=== PATIENT | male | born 1960 | race African-American/Black ===

== ENCOUNTER 2019-05-29 10:25 | Inpatient (IN) ==
--- NOTE | 2019-05-22 15:45 | PAT Medication Instructions ---
Medication Instructions Date of Service May 22, 2019 Home Medications tramadol 50 mg PO Q6H PRN Take morning of surgery With a small sip of water, OTHERWISE NOTHING TO EAT OR DRINK AFTER MIDNIGHT: tramadol 50 mg PO Q6H PRN (okay to take up to 4 hours prior to surgery if needed) Take evening before surgery tramadol 50 mg PO Q6H PRN (if needed) Other Notes If you have any questions please call us at [phone] or [phone] or [phone] or [phone]
--- NOTE | 2019-05-23 11:59 | Anesthesiology Consultation ---
Date of Service May 23, 2019 Assessment & Plan (1) Encounter for pre-operative examination: - Awaiting most recent cardiology office visit (Dr. Kumar). - Awaiting preop UA (being done at [facility]). Chart Review Chart Review: Acceptable Risk for Surgery and Patient seen in Pre Admission Testing Consults Requested none Teaching & Discussion Pre-Anesthesia Teaching/Discussion Notes: Instructed NPO after midnight before surgery,except medications with 15 cc of water. Medication instructions provided according to the PAT guidelines. History Surgery Operation Date: 05/29/19 13:05 Proposed Procedures p L4-L5, L5-S1 Revision Decompression and Fusion with Spinal Cord Monitoring - Harvey Chong, Height/Weight Height: 5 ft 10 in Weight: 120.2 kg Allergies Allergy/AdvReac Type Severity Reaction Status Date / Time ciprofloxacin [From Cipro] Allergy Unknown Hives Verified 05/20/19 16:01 morphine AdvReac Unknown GI UPSET Verified 05/22/19 15:43 Medications Home Medications Medication Instructions Recorded Confirmed Last Taken tramadol 50 mg PO Q6H PRN 05/20/19 05/20/19 Unknown Past Medical History Medical History Atrial fibrillation paroxysmal; previously on Eliquis but per patient, decision with pilot safety inspector to discontinue 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 Chronic back pain B/L LE radiculopathy HTN (hypertension) no meds Hx of renal cell cancer s/p right partial nephrectomy (no chemo or radiation) Obesity Exercise / Class Metabolic Activity III < 4 Walking/Shop/Light housework (uses cane PRN) Past Surgical History Surgical History History of arthroscopic knee surgery History of back surgery X3 History of cardiac cath 2+ years ago: no stents History of excision of mass CHEST X2 History of right hip replacement Hx of colonoscopy Hx of eye surgery RIGHT Hx of partial nephrectomy RIGHT Past Anesthesia History No Hx of Anesthesia Complications and No Family Hx of Anesthesia Complications Social History Smoking Status: Current every day smoker tobacco type: cigarettes Smoking cigarettes per day: 10 cigarettes x 30 years Do You Dip or Chew Tobacco: No Hx Alcohol Use: Yes alcohol intake frequency: holidays/special occasions only Hx Substance Use: No substance use type: does not use Review of Systems Patient denies chest pain, shortness of breath, cough, wheezing, palpitations. Physical Exam Vital Signs VITALS BP 165/82 (Patient advised to followup with PCP regarding elevated BP) P 74 TEMP 98.7 SP02 96%RA RESP 16 PHYSICAL Full neck and c-spine range of motion. Full TMJ range of motion. TMD 4 finger breaths Mallampati Score 3 Dentition: missing molars Lungs: clear throughout to auscultation Cardiac: regular rate and rhythm, no murmurs noted Spine: normal Carotid arteries: negative bruit Extremities: no edema Testing Laboratory Results 05/23/19 12:16 05/23/19 12:16 PT 10.4 Seconds (9.0-12.0) 05/23/19 12:16 INR 1.0 (0.9-1.1) 05/23/19 12:16 APTT 27.5 Seconds (21.0-31.0) 05/23/19 12:16 Blood Type B Positive 05/23/19 12:16 Antibody Screen NEGATIVE 05/23/19 12:16 Electrocardiogram Date: 02/16/19 SR at 71bpm. Borderline inferior leads TWA. Chest X-Ray Date: 03/25/19 Findings: + NAD Echocardiogram Date: 10/22/17 LVEF 60-65%. Borderline RVD. Mild LAE. Mild LEXI. Consistent with LVH. Stress Test Date: 02/19/18 Type: nuclear LVEF 48%. "Normal" LV Wall motion. Consistent with diaphragmatic attenuation artifact. 50% MPHR. No suggestion of ischemia or infarct.
[2019-05-23 14:15] LABS: BUN Creatinine Ratio 14.1 (10-20); Calcium 9.5 mg/dl (8.5-10.1); Creatinine Clr Calc Pharmacy 74.6 ml/min; Est GFR (African American) 63.1; Est GFR (Non-African American) 54.4; Potassium 4.3 mmol/L (3.5-5.1)
[2019-05-23 15:38] LABS: Basophils # (auto) 0.02 K/uL (0-0.2); Basophils % (auto) 0.3 %; Eosinophils # (auto) 0.12 K/uL (0-0.5); Eosinophils % (auto) 1.8 %; Hemoglobin 15.2 g/dL (14.0-18.0); Immature Granulocytes # (auto) 0.02 K/uL (0.00-0.02); Immature Granulocytes % (auto) 0.3 %; Lymphocytes # (auto) 1.77 K/uL (1.2-3.4); Lymphocytes % (auto) 26.3 %; Mean Corpuscular Hemoglobin 28.1 pg (25-34); Mean Corpuscular Hgb Conc 33.8 g/dL (32-36); Mean Corpuscular Volume 83.2 fL (80-100); Mean Platelet Volume 11.1 fL (7.4-10.4); Monocytes # (auto) 0.49 K/uL (0.11-0.59); Monocytes % (auto) 7.3 %; Neutrophils # (auto) 4.32 K/uL (1.4-6.5); Platelet Count 248 K/uL (130-400); RDW Coefficient of Variation 15.1 % (11.5-14.5); RDW Standard Deviation 45.6 fL (36.4-46.3); Red Blood Count 5.41 M/uL (4.7-6.1); White Blood Count 6.74 K/uL (4.8-10.8)
[2019-05-23 15:50] LABS: Partial Thromboplastin Time 27.5 Seconds (21.0-31.0); Prothrombin Time 10.4 Seconds (9.0-12.0)
[~2019-05-29 10:25] MED LIST: ACETAMINOPHEN 500 MG TAB PO SCH; CEFAZOLIN 3000MG 72.5 ML IV SCH; CeleBREX 200 MG CAP PO SCH; GABAPENTIN 600 MG DOSE PO SCH; LR 15ML/HR IV SCH
[2019-05-29] MEDS ORDERED: MIDAZOLAM HCL 1 MG/ML 2ML VIAL ONE (12:46)
[2019-05-29] MEDS ORDERED: fentaNYL citrate 100 MCG/2 ML VIAL ONE ×5 (12:46→16:24)
--- NOTE | 2019-05-29 13:08 | History & Physical Bridge Note ---
Date of Service May 29, 2019 History & Physical Bridge Note I have examined the patient, reviewed the History & Physical and in the interval since the performance of the History & Physical I have noted the following changes of clinical significance: no changes noted
--- NOTE | 2019-05-29 13:10 | History & Physical Report ---
Date of Service May 29, 2019 Assessment & Plan (1) Spinal stenosis, lumbar region with neurogenic claudication: Revision decompression fusion L4-5 L5-S1. Present on Admission?: Yes History of Present Illness Chief Complaint: Back and bilateral leg pain Primary Care Provider: NO PCP This is a 58-year-old male well-known to me that presents with chronic persistent back pain after failing extensive course of nonoperative care is here for surgical intervention. 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 Chronic back pain B/L LE radiculopathy Hx of renal cell cancer s/p right partial nephrectomy (no chemo or radiation) HTN (hypertension) no meds Obesity Surgical History History of arthroscopic knee surgery History of back surgery X3 History of cardiac cath 2+ years ago: no stents History of excision of mass CHEST X2 History of right hip replacement Hx of colonoscopy Hx of eye surgery RIGHT Hx of partial nephrectomy RIGHT Social History Preferred Language: French Communication Ability: Effective Beliefs That Will Affect Care: None Current Living Situation: Significant Other Feels Safe at Home: Yes Smoking Status: Current every day smoker Tobacco Type: cigarettes ; Cigarettes Per Day: 10 cigarettes x 30 years ; Do You Dip or Chew Tobacco: No ; Second Hand Exposure: Yes (DAILY) ; Hx Alcohol Use: Yes Hx Substance Use: No Physical Exam Physical Exam: Patient is alert and oriented neurologically intact. Results & Data Vital Signs (Past 12 Hours) Vital Signs Temp Pulse Resp BP Pulse Ox 05/29/19 11:25 36.8 C 66 20 146/86 H 96
[2019-05-29] MEDS ORDERED: BACITRACIN INJ 50,000 UNIT VIAL ONE (13:19)
[2019-05-29] MEDS ORDERED: BUPIVACAINE/EPINEPHRINE 0.5% MPF 1:200,000 30 ML VIAL ONE (13:19)
[2019-05-29] MEDS ORDERED: HYDROmorphone INJ 2 MG/ML SYR/VIAL ONE (13:20)
[2019-05-29] MEDS ORDERED: ATROPINE SULFATE 0.1 MG/ML 10ML SYR IV PRN (13:23)
[2019-05-29] MEDS ORDERED: ePHEDrine sulfate 50 MG/ML AMP IV PRN (13:23)
[2019-05-29] MEDS ORDERED: PROPOFOL IV EMULSION 10 MG/ML 20 ML VIAL IV ONE ×2 (14:03→16:12)
[2019-05-29] MEDS ORDERED: NEOSTIGMINE METHYLSULFATE 1 MG/ML 10ML VIAL ONE (14:03)
[2019-05-29] MEDS ORDERED: ROCURONIUM BROMIDE 10 MG/ML 5 ML VIAL ONE (14:03)
[2019-05-29] MEDS ORDERED: PHENYLEPHRINE 100MCG/ML 5ML SYR ONE (14:03)
[2019-05-29] MEDS ORDERED: LIDOCAINE HCL 2% 2 ML VIAL/AMP(20MG/ML) INFIL ONE (14:03)
[2019-05-29] MEDS ORDERED: DEXAMETHASONE SOD INJ 4 MG/ML VIAL ONE (14:03)
[2019-05-29] MEDS ORDERED: ONDANSETRON INJ 2 MG/ML 2 ML VIAL ONE (14:03)
[2019-05-29] MEDS ORDERED: GLYCOPYRROLATE 0.2 MG/ML VIAL ONE (14:03)
[2019-05-29] MEDS ORDERED: FLOSEAL HEMOSTATIC MATRIX 10ML TOP ONE (14:05)
[2019-05-29] MEDS ORDERED: GENTAMICIN SULFATE 40 MG/ML 2 ML VIAL ONE (14:08)
[2019-05-29] MEDS ORDERED: VANCOMYCIN HCL 1000MG/20ML VIAL ONE (14:08)
[2019-05-29] MEDS ORDERED: LARYING-O-JET KIT (LTA) ONE (14:10)
[2019-05-29] MEDS ORDERED: PHENYLEPHRINE HCL 10 MG/ML VIAL ONE (14:14)
--- NOTE | 2019-05-29 17:01 | Fluoroscopy Report ---
FL lumbar spine 2-3V CLINICAL HISTORY: L4-L5, L5-S1 REVISION, DECOMPRESSION AND FUSION COMPARISON STUDY: None FLUOROSCOPY TIME: 2 minutes NUMBER OF FLUOROSCOPIC IMAGES: 2 FINDINGS: Findings of a posterior laminectomy and fusion at L4, L5, and S1. Disc spacers present at L 5-S1 slightly left lateral midline. IMPRESSION: Findings consistent with posterior laminectomy and fusion from L4 through S1 with disc sp acer placement at L5-S1 The above report was generated using voice recognition software. It may contain grammatical, syntax or spelling errors. Electronically signed by: Lenin Gerardo M.D. 05/29/2019 5:00 PM
--- NOTE | 2019-05-29 17:06 | Operative Report ---
Post Operative Report Pre & Post Diagnosis Operation Date: 05/29/19 12:45 Pre-Op Diagnosis: Spinal stenosis, lumbar region with neurogenic claudication L4-S1 Nonunion L5-S1 Post-Op Diagnosis: Same Procedure Operation Date: 05/29/19 12:45 Actual Procedures #1 revision decompression L4-5 L5-S1 with medial facetectomies foraminotomies. #2 posterior spinal fusion L4-5 L5-S1. #3 placement posterior instrumentation L4-5 L5-S1. #4 revision interbody fusion L5-S1. #5 placement of peek cage 9 x 26 mm at L5-S1. #6 placement of local autograft in the posterior lateral gutters. #7 placement infuse collagen sponge, mass graft in the posterior lateral gutters and ostial amp and interbody space. #8 expiration of fusion. Surgeon Harvey Chong, DO System Development Engineer None Estimated Blood Loss 350 Findings See Below Patient is 5 foot 10 inches tall weighing over 118 kg with a BMI in excess of 37. Patient's body habitus added significant technical difficulty particularly in the light of her revision procedure and at least 50% increase in operative time. Specimens None Indications This is a 58-year-old male who presents with chronic persistent back and leg pain after failing extensive course of nonoperative care like to go above- mentioned procedure. Description of Procedure Patient was met with identified and informed consent obtained. Patient was then taken to the operative suite underwent intubation placed in a prone position on the Vishal table on top of the Vimal frame. All bony prominences well-padded eyes inspected to ensure no external pressure placed upon the peer at this point the lumbar spine was prepped and draped in normal sterile fashion. Sharp dissection with the assistance of Bovie cautery was then performed down to and exposing the remaining lamina and transverse processes of L4-L5 and sacral ala bilaterally. I then explored the fusion mass noting motion definitely appreciable at the L5-S1 level. Then performed a revision decompression medial facetectomies at L4-5 L5-S1 on the left. Pedicle screws were placed in L4-L5 and S1 levels bilaterally with assistance of fluoroscopy and by way of a transforaminal approach on the left revision interbody fusion was performed. Remove the remaining disc material and placed a 9 x 26 mill meter peek cage filled with ostium bone graft and interbody space. The rods were then locked in final position bilaterally. The transverse processes of L for L5 and the sacral ala were then burred to subcortical being bone. Infuse collagen sponge master graft local autograft placed in the posterior lateral gutters. Approximately 10 cc of stimulant beads impregnated with vancomycin tobramycin placed within the wound. 15 round AMENA drain inserted. Incision was then closed with 1 Vicryl in the fascia 2-0 Vicryl subcutaneously and 4 Monocryl for final skin closure. Steri-Strip sterile dressings placed. Patient will continue to PACU stable condition. Please note spinal cord monitoring was utilized that the procedure no changes noted. I attest to the content of the Intraoperative Record and any orders documented therein. Any exceptions are noted below.
[2019-05-29] MEDS: HYDROmorphone INJ 1 MG/ML SYRINGE IV PRN ×7 (17:22→17:52)
[2019-05-29] MEDS ORDERED: MEPERIDINE HCL 50 MG/ML CARP ONE (17:56)
[2019-05-29] MEDS ORDERED: MEPERIDINE HCL 50 MG/ML CARP IV ONE (17:56)
[2019-05-29] MEDS ORDERED: LORazepam 2 MG/4 ML VIAL ONE (17:57)
--- NOTE | 2019-05-29 18:27 | Anesthesiology Progress Note ---
Date of Service May 29, 2019 Anesthesia Post Procedure Vital Signs Vital Signs: Temp Pulse Pulse Resp BP Pulse Ox 05/29/19 18:20 81 12 149/70 H 97 05/29/19 18:10 82 13 140/74 98 05/29/19 18:00 84 12 133/61 100 05/29/19 17:50 82 17 139/65 100 05/29/19 17:40 84 24 145/66 H 100 05/29/19 17:30 81 21 137/78 99 05/29/19 17:20 81 24 128/66 99 05/29/19 17:10 36.4 C L 96 H 12 137/86 100 05/29/19 11:25 36.8 C 66 20 146/86 H 96 Pain Intensity Lower Back: Pain Intensity: 3 Notes Mental Status: alert / awake / arousable Patient Amnestic to Procedure: Yes Nausea / Vomiting: adequately controlled Pain: adequately controlled Airway Patency, RR, SpO2: stable & adequate BP & HR: stable & adequate Hydration State: stable & adequate Anesthetic Complications: no major complications apparent and Pt Satisfied with anesthetic care
[2019-05-29] MEDS ORDERED: DO NOT ADMINISTER PNEUMOCOCCAL VACCINE PRN (18:47)
[2019-05-29] MEDS ORDERED: METOCLOPRAMIDE HCL INJ 5 MG/ML 2 ML VIAL IV PRN (18:47)
[2019-05-29] MEDS ORDERED: LORazepam 0.5 MG TAB PO PRN (18:47)
[2019-05-29] MEDS ORDERED: ONDANSETRON 4 MG TAB PO PRN (18:47)
[2019-05-29] MEDS ORDERED: DO NOT ADMINISTER FLU VACCINE PRN (18:47)
[2019-05-29] MEDS ORDERED: ACETAMINOPHEN 1,000 MG/100 ML VIAL IV PRN (18:47)
[2019-05-29] MEDS ORDERED: LORazepam 0.5 MG/1 ML VIAL IV PRN (18:47)
[2019-05-29] MEDS ORDERED: BISACODYL 10 MG SUPP PR PRN (18:47)
[2019-05-29] MEDS ORDERED: NALOXONE HCL 0.4 MG/1 ML VIAL/CARP IV PRN (18:47)
[2019-05-29] MEDS ORDERED: MAGNESIUM HYDROXIDE SUSP 30 ML UDC PO PRN (18:47)
[2019-05-29] MEDS ORDERED: HYDROmorphone INJ 0.5 MG/0.5 ML SYR IV PRN (18:47)
[2019-05-29] MEDS ORDERED: SOD PHOSPHATE/SOD BIPHOSPHATE ENEMA 132 ML BTL PR PRN (18:47)
[2019-05-29] MEDS ORDERED: PROMETHAZINE HCL 12.5 MG in SODIUM CHLORIDE 0.9% 50 ML IV PRN (18:47)
[2019-05-29] MEDS ORDERED: ACETAMINOPHEN 500 MG TAB PO PRN (18:47)
--- NOTE | 2019-05-29 19:31 | Hospitalist Consultation ---
Date of Consultation May 29, 2019 Assessment & Plan (1) Spinal stenosis, lumbar region with neurogenic claudication: - POD# 0 revision of decompression fusion L4-L5, L5-S1 by Dr. Chong - activity and wound care orders as per ortho - pain control with bowel regimen - PT/OT - monitor H/H for acute blood loss anemia and transfuse blood products PRN - EBL 350 cc (2) HTN (hypertension): -BP currently controlled -Patient declines to take antihypertensives at home (3) Paroxysmal A-fib: -Currently in NSR -Patient declines medications and anticoagulation (4) CAD (coronary artery disease): -Nonobstructive -Appears stable, no reports of chest pain -Patient declines medications (5) DVT prophylaxis: -Teds/SCDs as per spine orthopedics Thank you for this consultation. We will follow the patient with you during their hospital stay. You can reach a member of the [facility] Hospitalist Team 03/04 via pager @ [phone]. Supervising Physician Co-Signing Physician Notes Patient is a 58-year-old male with history of paroxysmal A. fib, right eye blindness secondary to trauma, renal cell carcinoma S/P partial right nephrectomy, hypertension, obesity and other problems was seen and evaluated postop after having revision of lumbar decompression surgery by Dr. Chong. Patient complains of bilateral lower extremity pain associated with some numbness and tingling postop. Denies any chest pain, shortness of breath, dizziness, nausea, abdominal pain. Physical Exam: Vitals signs as noted above General Appearance:Obese, no apparent distress Head: normocephalic, Atraumatic Eyes: normal inspection, EOMI Neck: supple, Trachea midline Respiratory/Chest: Normal breath sounds, CTA Cardiovascular: S1, S2, No murmur Abdomen/GI:Soft, Non tender, Bowel sounds present Back: Surgical settings dressing, +drain Extremities/Musculoskelatal:normal inspection, no edema Neurologic/Psych:AAOX3, grossly no focal neurological deficits Skin: normal color, warm Postoperative state S/P revision of lumbar decompression fusion surgery POD#0 Wound care, activity, DVT prophylaxis, pain control as per primary team Monitor for postop anemia Bowel regimen to prevent constipation ? CKD Unknown baseline creatinine Monitor renal function May need to discontinue IV Toradol if renal function worsens Continue IV fluids I personally reviewed the record. Patient is interviewed and examined at bedside. Patient's care is coordinated with Zuleika Murillo CEMENT TILE MAKER. Please refer to the documentation above for details of patient's presentation and for discussion of other issues. will follow the patient starting tomorrow. 05/30/19 History of Present Illness Reason for Consultation: Postop medical management Requesting Physician: Dr. Chong Attending Physician: Dr. Gale History of Present Illness 58-year-old male who is status post revision of decompression fusion L4-L5, L5- S1. Postoperatively, the patient is doing well. He is lethargic however arouses easily to verbal stimuli. History is limited. Is complaining of back and left leg pain and numbness and tingling to lower extremities. This was present before surgery. Patient denies chest pain shortness of breath. No lightheadedness or dizziness. Denies abdominal pain and nausea. Perdomo is in place draining clear yellow urine. Allergies Allergy/AdvReac Type Severity Reaction Status Date / Time ciprofloxacin [From Cipro] Allergy Unknown Hives Verified 05/29/19 11:01 morphine AdvReac Unknown GI UPSET Verified 05/29/19 11:01 Home Medications Home Medications Medication Instructions Recorded Confirmed Type tramadol 50 mg PO Q6H PRN 05/20/19 05/29/19 History Patient History Medical History CAD (coronary artery disease) (Chronic) Paroxysmal A-fib (Chronic) Chronic back pain (Chronic) B/L LE radiculopathy 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 Hx of renal cell cancer (Chronic) s/p right partial nephrectomy (no chemo or radiation) Obesity (Chronic) HTN (hypertension) (Chronic) no meds Surgical History History of cardiac cath (Chronic) non obstructive CAD Hx of partial nephrectomy (Chronic) RIGHT History of right hip replacement (Chronic) History of arthroscopic knee surgery (Chronic) History of back surgery (Chronic) X3 Hx of eye surgery (Chronic) RIGHT Family History Brother Kidney disease Social History Preferred Language: Czech Communication Ability: Effective Beliefs That Will Affect Care: None Current Living Situation: Significant Other Feels Safe at Home: Yes Smoking Status: Current every day smoker Tobacco Type: cigarettes ; Cigarettes Per Day: 10 cigarettes x 30 years ; Do You Dip or Chew Tobacco: No ; Second Hand Exposure: Yes (DAILY) ; Hx Alcohol Use: Yes Alcohol Intake Frequency: Rarely Hx Substance Use: No Review of Systems Review of Systems: ROS per HPI, all other systems reviewed and negative Physical Exam Physical Exam: Please refer to Dr. Gale's addendum for physical exam. Results & Data Vital Signs (Past 12 Hours) Vital Signs Temp Pulse Pulse Resp BP Pulse Ox 05/29/19 19:15 37 C 81 142/75 H 99 05/29/19 18:45 36.5 C 79 16 152/79 H 99 05/29/19 18:30 36.3 C L 84 15 133/64 96 05/29/19 18:20 81 12 149/70 H 97 05/29/19 18:10 82 13 140/74 98 05/29/19 18:00 84 12 133/61 100 05/29/19 17:50 82 17 139/65 100 05/29/19 17:40 84 24 145/66 H 100 05/29/19 17:30 81 21 137/78 99 05/29/19 17:20 81 24 128/66 99 05/29/19 17:10 36.4 C L 96 H 12 137/86 100 05/29/19 11:25 36.8 C 66 20 146/86 H 96
[2019-05-29] MEDS: CEFAZOLIN 2000MG 2,000 MG/15 ML SYR IV SCH (19:40)
[2019-05-29] MEDS: LACTATED RINGER'S 1,000 ML IV SCH (19:40)
[2019-05-29] MEDS: KETOROLAC 30 MG/ML VIAL IV SCH (19:46)
[2019-05-29] MEDS: ONDANSETRON INJ 2 MG/ML 2 ML VIAL IV PRN (22:09)
[2019-05-29] MEDS: DOCUSATE SODIUM/SENNA 50/8.6MG TAB PO SCH (22:11)
[2019-05-29] MEDS: OXYCODONE HCL IR 5 MG TAB (IMMEDIATE RELEASE) PO PRN (23:44)
[2019-05-30] MEDS: LACTATED RINGER'S 1,000 ML IV SCH (02:59)
[2019-05-30] MEDS: KETOROLAC 30 MG/ML VIAL IV SCH ×3 (03:00→13:29)
[2019-05-30] MEDS: CEFAZOLIN 2000MG 2,000 MG/15 ML SYR IV SCH (03:17)
[2019-05-30] MEDS: OXYCODONE HCL IR 5 MG TAB (IMMEDIATE RELEASE) PO PRN ×4 (04:26→19:01)
[2019-05-30] MEDS: POLYETHYLENE (MIRALAX) 17 GM PACK PO SCH ×3 (04:47→19:01)
[2019-05-30] MEDS: TRAMADOL HCL 50 MG TABLET PO PRN ×2 (05:47→22:43)
[2019-05-30 06:22] LABS: Eosinophils # (auto) 0.01 K/uL (0-0.5); Eosinophils % (auto) 0.1 %; Immature Granulocytes # (auto) 0.07 K/uL (0.00-0.02); Immature Granulocytes % (auto) 0.6 %; Lymphocytes # (auto) 1.18 K/uL (1.2-3.4); Lymphocytes % (auto) 9.9 %; Mean Corpuscular Hemoglobin 27.4 pg (25-34); Mean Corpuscular Hgb Conc 33.3 g/dL (32-36); Mean Corpuscular Volume 82.3 fL (80-100); Mean Platelet Volume 9.6 fL (7.4-10.4); Monocytes # (auto) 0.93 K/uL (0.11-0.59); Monocytes % (auto) 7.8 %; Neutrophils # (auto) 9.78 K/uL (1.4-6.5); Neutrophils % (auto) 81.6 %; Platelet Count 221 K/uL (130-400); RDW Coefficient of Variation 14.6 % (11.5-14.5); Red Blood Count 4.74 M/uL (4.7-6.1); White Blood Count 11.97 K/uL (4.8-10.8)
[2019-05-30 06:54] LABS: BUN Creatinine Ratio 14.1 (10-20); Creatinine Clr Calc Pharmacy 74.7 ml/min; Est GFR (African American) 63.6; Est GFR (Non-African American) 54.9; Potassium 4.2 mmol/L (3.5-5.1)
--- NOTE | 2019-05-30 09:22 | Orthopedic Progress Note ---
Date of Service May 30, 2019 Assessment & Plan (1) Spinal stenosis, lumbar region with neurogenic claudication: At this time we will initiate physical therapy. I will begin some additional medication for neural irritation. This is not surprising in light of the revision component of this procedure. This was explained to the patient. Present on Admission?: Yes Subjective Patient has worsening left leg symptoms. His back pain is controlled. Physical Exam Physical Exam: On exam he is able to sit up in bed. Is good strength testing bilateral lower extremities. Results & Data Vital Signs (Past 12 Hours) Vital Signs Temp Pulse Pulse Resp BP Pulse Ox 05/30/19 07:49 36.7 C 74 18 183/95 H 95 05/30/19 02:58 36.7 C 71 18 175/82 H 97 05/29/19 23:28 36.4 C L 68 18 177/67 H 99 05/29/19 21:43 36.7 C 75 16 167/79 H 100
--- NOTE | 2019-05-30 09:51 | Anesthesiology Progress Note ---
Date of Service May 30, 2019 Anesthesia Post Procedure Vital Signs Vital Signs: Temp Pulse Pulse Resp BP Pulse Ox 05/30/19 07:49 36.7 C 74 18 183/95 H 95 05/30/19 02:58 36.7 C 71 18 175/82 H 97 05/29/19 23:28 36.4 C L 68 18 177/67 H 99 05/29/19 21:43 36.7 C 75 16 167/79 H 100 05/29/19 20:44 36.4 C L 74 16 165/90 H 100 05/29/19 19:45 36.5 C 71 16 165/94 H 100 05/29/19 19:15 37 C 81 142/75 H 99 05/29/19 18:45 36.5 C 79 16 152/79 H 99 05/29/19 18:30 36.3 C L 84 15 133/64 96 05/29/19 18:20 81 12 149/70 H 97 05/29/19 18:10 82 13 140/74 98 05/29/19 18:00 84 12 133/61 100 05/29/19 17:50 82 17 139/65 100 05/29/19 17:40 84 24 145/66 H 100 05/29/19 17:30 81 21 137/78 99 05/29/19 17:20 81 24 128/66 99 05/29/19 17:10 36.4 C L 96 H 12 137/86 100 05/29/19 11:25 36.8 C 66 20 146/86 H 96 Notes Mental Status: alert / awake / arousable and participated in evaluation Nausea / Vomiting: adequately controlled Pain: adequately controlled Airway Patency, RR, SpO2: stable & adequate BP & HR: stable & adequate Hydration State: stable & adequate
--- NOTE | 2019-05-30 10:47 | Hospitalist Progress Note ---
Date of Service May 30, 2019 Assessment & Plan (1) Spinal stenosis, lumbar region with neurogenic claudication: POD# 1 S/P revision and decompression fusion L4-L5, L5-S1 by Dr. Chong EBL#350ml. Total AMENA drain output: 470ml -pain management per ortho -wound management per ortho -PT/OT as appropriate -DVT prophylaxis per ortho- SCDs -incentive spirometry -Hb from 15 pre-op on 05/23/19, continue to monitor H&H (2) HTN (hypertension): BP Elevated Pt reports stopped taking BP medications. Pt was prescribed Diltiazem 180mg daily in 2018, and was changed to metoprolol succinate 50mg daily (last filled 01/2019) -Today will start lopressor 25mg po BID, with plan to restart metoprolol succinate 50mg daily starting tomorrow (3) Paroxysmal A-fib: Pt was prescribed Diltiazem 180mg daily in 2018, and was changed to metoprolol succinate 50mg daily (last filled 01/2019) and has not taken since. Pt reports has declined anticoagulation in past. Regular rhythm on auscultation -Start lopressor 25mg po BID today -Will restart metoprolol succinate 50mg daily starting tomorrow (4) CAD (coronary artery disease): Nonobstructive Pt with hx med noncompliance in past and not taking medications at home -No current CP or SOB (5) Renal insufficiency: (6) Hx of partial nephrectomy: Pt with hx renal cell CA s/p Right partial nephrectomy CKD II H/O Cr: 1.3, GFR: 63 on 03/15/19; Cr: 1.16 on 03/25/19 (pt was able to put up history lab results on [facility] betty on his phone) Pre-op labs: BUN: 20, Cr: 1.42, GFR: 63 on 05/23/19 Today Cr: 1.4 -Monitor renal functions -Avoid nephrotoxic agents when possible (7) DVT prophylaxis: -Teds/SCDs as per spine ortho Pt was seen and care coordinated with Dr Patel. See addendum Supervising Physician Co-Signing Physician Notes Attending addendum The patient was seen and examined in medical Status post irrigation and decompression patient of 45, L5-S1 by Dr. Chong Noted to have very high blood pressure Has some back pain without radiation On examination Minimal distress at rest Blood pressure is high otherwise hemodynamically stable Chest-clear to auscultate bilaterally Heart-S1-S2 regular Abdomen-benign Labs and imaging studies reviewed Has high blood pressure and was on medications before. Very noncompliant Will start metoprolol 25 million twice daily and Toprol-XL 50 mg from tomorrow morning Agree with assessment and plan as outlined above by LYN Lopez Dr Subjective Pt seen and examined. Sitting up in bed. Reports low back pain with radiation to legs, feels worse since he has been out of bed. Also reports leg paresthesias. No BM yet. Reports Perdomo catheter just removed and hasn't urinated yet. Reports one episode of vomiting yesterday and none since. Eating and drinking well last night and today. Denies fever/chills, BECK, dizziness, syncope, vision changes, neck pain, CP, SOB, palpitations, cough, sore throat, choking, otalgia, rhinorrhea, abdominal pain, extremity weakness, extremity edema, rashes. Review of Systems Review of Systems: All systems reviewed & are unremarkable except as noted in HPI & below Physical Exam Physical Exam: General: no acute distress, obese Head: normocephalic, atraumatic Eyes: Right eye: hazy, left eye conjunctiva non-injected, anicteric ENT: normal inspection external ears, nose, mucous membranes moist Neck: supple, trachea midline Lungs: clear, no respiratory distress, no wheezing/rhonchi/rales CV: RRR, no murmur, no pretibial edema Abd: normal BS, soft, non-tender Back: dressing in place is dry, AMENA drain intact Ext: no cyanosis, no calf tenderness, bilateral pedal pushes and pulls intact, distal pulses intact, sensation to light touch intact Neuro: A&O x 3, no focal deficits noted, normal affect Skin: warm, dry Results & Data Vital Signs (Past 12 Hours) Vital Signs Temp Pulse Resp BP Pulse Ox 05/30/19 07:49 36.7 C 74 18 183/95 H 95 05/30/19 02:58 36.7 C 71 18 175/82 H 97 05/29/19 23:28 36.4 C L 68 18 177/67 H 99 Laboratory Results Short CBC 05/30/19 Range/Units 06:06 WBC 11.97 H (4.8-10.8) K/uL Hgb 13.0 L (14.0-18.0) g/dL Hct 39.0 L (42-52) % Plt Count 221 (130-400) K/uL [facility] 05/30/19 06:06 Sodium 139 Potassium 4.2 Chloride 103 Carbon Dioxide 28 BUN 20 H Creatinine 1.41 H Glucose 112 H Calcium 9.0
[2019-05-30] MEDS: METOPROLOL TARTRATE 25 MG TAB PO SCH ×2 (12:25→20:37)
[2019-05-30] MEDS: GABAPENTIN 300 MG CAP PO SCH ×2 (13:29→20:36)
[2019-05-30] MEDS: DEXAMETHASONE SOD PHOSPHATE 8 MG in SYRINGE 0 ML IV SCH ×2 (14:10→22:07)
[2019-05-30] MEDS: ONDANSETRON INJ 2 MG/ML 2 ML VIAL IV PRN (14:15)
[2019-05-30] MEDS: DOCUSATE SODIUM/SENNA 50/8.6MG TAB PO SCH (20:37)
[2019-05-30] MEDS: ALUMINUM/MAGNESIUM SUSP 30 ML UDC PO PRN (22:06)
[2019-05-30] MEDS ORDERED: METOPROLOL TARTRATE 25 MG TAB PO STA (22:21)
[2019-05-31] MEDS: POLYETHYLENE (MIRALAX) 17 GM PACK PO SCH ×6 (00:44→23:17)
[2019-05-31] MEDS: OXYCODONE HCL IR 5 MG TAB (IMMEDIATE RELEASE) PO PRN ×5 (00:58→21:37)
[2019-05-31] MEDS ORDERED: cloNIDine HCl 0.1 MG TAB PO ONE (01:28)
[2019-05-31] MEDS: FAMOTIDINE 20 MG TAB PO PRN ×2 (01:58→21:40)
[2019-05-31] MEDS: DEXAMETHASONE SOD PHOSPHATE 8 MG in SYRINGE 0 ML IV SCH ×4 (05:46→21:37)
[2019-05-31 06:02] LABS: Hematocrit (blood only) 37.9 % (42-52); Hemoglobin 12.3 g/dL (14.0-18.0); Mean Corpuscular Hemoglobin 26.9 pg (25-34); Mean Corpuscular Hgb Conc 32.5 g/dL (32-36); Mean Corpuscular Volume 82.9 fL (80-100); Mean Platelet Volume 10.1 fL (7.4-10.4); Platelet Count 243 K/uL (130-400); RDW Coefficient of Variation 14.6 % (11.5-14.5); Red Blood Count 4.57 M/uL (4.7-6.1); White Blood Count 12.07 K/uL (4.8-10.8)
[2019-05-31 06:36] LABS: BUN Creatinine Ratio 17.4 (10-20); Calcium 8.5 mg/dl (8.5-10.1); Creatinine Clr Calc Pharmacy 88.5 ml/min; Est GFR (African American) 78.1; Est GFR (Non-African American) 67.4; Potassium 4.7 mmol/L (3.5-5.1)
[2019-05-31] MEDS: GABAPENTIN 300 MG CAP PO SCH ×3 (08:21→21:38)
[2019-05-31] MEDS: METOPROLOL SUCC 50MG EXT REL TAB PO SCH (08:21)
[2019-05-31] MEDS: LISINOPRIL 5 MG TAB PO SCH (09:08)
[2019-05-31] MEDS: ALUMINUM/MAGNESIUM SUSP 30 ML UDC PO PRN ×2 (09:08→17:34)
--- NOTE | 2019-05-31 10:50 | Orthopedic Progress Note ---
Date of Service May 31, 2019 Assessment & Plan (1) Spinal stenosis, lumbar region with neurogenic claudication: This time continue physical therapy hopefully discharge home later half this weekend. Present on Admission?: Yes Subjective Patient's back pain is controlled still struggling with some left leg pain. There is tolerating physical therapy well. Physical Exam Physical Exam: On exam he is in the chair at bedside is good strength testing appears comfortable. Results & Data Vital Signs (Past 12 Hours) Vital Signs Temp Pulse Resp BP Pulse Ox 05/31/19 09:10 169/78 H 05/31/19 08:33 36.5 C 71 18 180/88 H 99 05/31/19 03:39 160/78 H 05/31/19 01:00 69 193/96 H
--- NOTE | 2019-05-31 11:45 | Hospitalist Progress Note ---
Date of Service May 31, 2019 Assessment & Plan (1) Spinal stenosis, lumbar region with neurogenic claudication: POD# 2 S/P revision and decompression fusion L4-L5, L5-S1 by Dr. Arlette JOHANSEN#350ml. Total AMENA drain output: 470ml -pain management per ortho -wound management per ortho -PT/OT as appropriate -DVT prophylaxis per ortho- SCDs -incentive spirometry -Hb from 15 pre-op on 05/23/19, continue to monitor H&H -H&H remain stable at 12.3 on 05/31 (2) HTN (hypertension): BP Elevated Pt reports stopped taking BP medications. Pt was prescribed Diltiazem 180mg daily in 2018, and was changed to metoprolol succinate 50mg daily (last filled 01/2019) -Today will start lopressor 25mg po BID, with plan to restart metoprolol succinate 50mg daily starting tomorrow -Blood pressure remains elevated and we will add lisinopril 5 mg daily on top of Toprol-XL 50 mg daily (3) Paroxysmal A-fib: Pt was prescribed Diltiazem 180mg daily in 2017, and was changed to metoprolol succinate 50mg daily (last filled 01/2019) and has not taken since. Pt reports has declined anticoagulation in past. Regular rhythm on auscultation -Start lopressor 25mg po BID today -Will restart metoprolol succinate 50mg daily starting tomorrow -Heart rate is controlled and is in sinus rhythm (4) CAD (coronary artery disease): Nonobstructive Pt with hx med noncompliance in past and not taking medications at home -No current CP or SOB (5) Hx of partial nephrectomy: Pt with hx renal cell CA s/p Right partial nephrectomy CKD II H/O Cr: 1.3, GFR: 63 on 03/15/19; Cr: 1.16 on 03/25/19 (pt was able to put up history lab results on [facility] betty on his phone) Pre-op labs: BUN: 20, Cr: 1.42, GFR: 63 on 05/23/19 Today Cr: 1.4 -Monitor renal functions -Avoid nephrotoxic agents when possible -Creatinine has been normalized (6) DVT prophylaxis: -Teds/SCDs as per spine ortho (7) Acute renal failure (ARF): Noted to have creatinine of 1.42 Acute renal failure secondary to dehydration Creatinine has been normalized Medically stable Subjective 05/31 Patient was seen and examined in medical floor He is worried about having high blood pressure but is not having any acute symptoms He denies any chest pain or shortness of breath Still complains to have back pain without radiation He has been getting physical therapy following lumbar surgery Review of Systems Review of Systems: All systems reviewed and are unremarkable except as noted below Musculoskeletal: + back pain (Status post lumbar surgery) Physical Exam Physical Exam: Has been getting physical therapy Constitutional: + acute distress (Secondary to back pain), + ill appearing and + morbidly obese Eyes: PERRL, conjunctivae normal, anicteric sclerae ENMT: external ear and nose normal, oropharynx normal Mouth: no TMJ abnormality Mallampati Class: III Neck: trachea midline, no thyromegaly normal visual inspection Respiratory: normal respiratory effort Auscultation: lungs clear to auscultation bilaterally Cardiovascular: Rate/Rhythm: regular rate and regular rhythm Heart Sounds: no murmur Gastrointestinal (Abdomen): Inspection/Auscultation: abdomen normal to inspection Percussion/Palpation: abdomen soft Neurologic: moves all extremities Psychiatric: Orientation: alert and oriented x 3 Lymphatic: no cervical or axillary lymphadenopathy Results & Data Vital Signs (Past 12 Hours) Vital Signs Temp Pulse Resp BP Pulse Ox 05/31/19 09:10 169/78 H 05/31/19 08:33 36.5 C 71 18 180/88 H 99 05/31/19 03:39 160/78 H 05/31/19 01:00 69 193/96 H Laboratory Results Short CBC 05/31/19 Range/Units 05:27 WBC 12.07 H (4.8-10.8) K/uL Hgb 12.3 L (14.0-18.0) g/dL Hct 37.9 L (42-52) % Plt Count 243 (130-400) K/uL BMP 05/31/19 05:27 Sodium 135 L Potassium 4.7 Chloride 103 Carbon Dioxide 27 BUN 21 H Creatinine 1.19 Glucose 195 H Calcium 8.5 Medications Administered Current Inpatient Medications Acetaminophen (Tylenol) 1,000 mg PO Q8H PRN PRN Reason: MILD Pain Rating 1,2,3 Stop: 06/28/19 18:46 Al Hydrox/Mg Hydrox/Simethicone (Maalox) 30 ml PO Q6H PRN PRN Reason: Dyspepsia Stop: 06/28/19 18:46 Last Admin: 05/31/19 09:08 Dose: 30 ml Documented by: Bisacodyl (Dulcolax) 10 mg ND DAILY PRN PRN Reason: Constipation Stop: 06/28/19 18:46 Diphenhydramine HCl (Benadryl Capsule) 25 mg PO Q6H PRN PRN Reason: Allergic Rhinitis/Insomnia Stop: 06/28/19 18:46 Famotidine (Pepcid) 20 mg PO Q12H PRN PRN Reason: Dyspepsia Stop: 06/28/19 18:46 Last Admin: 05/31/19 01:58 Dose: 20 mg Documented by: Gabapentin (Neurontin) 300 mg PO TID JIL Stop: 06/29/19 13:59 Last Admin: 05/31/19 08:21 Dose: 300 mg Documented by: Hydromorphone HCl (Dilaudid) 0.5 - 1 mg IV Q3H PRN PRN Reason: Pain Stop: 06/12/19 18:46 Last Admin: 05/30/19 09:22 Dose: 1 mg Documented by: Hydroxyzine HCl (Vistaril) 25 mg PO Q8H PRN PRN Reason: Anxiety Stop: 06/28/19 18:46 Lorazepam (Ativan) 0.5 mg in 1 mls @ 0.5 mls/min IV Q8H PRN PRN Reason: Sedation/Anxiety Stop: 06/28/19 18:46 Promethazine HCl 12.5 mg/ (Sodium Chloride) 50.5 mls @ 204 mls/hr IV Q6H PRN PRN Reason: Nausea &/or Vomiting Stop: 06/28/19 18:46 Acetaminophen (Ofirmev) 1,000 mg in 100 mls @ 400 mls/hr IV Q8 PRN PRN Reason: MILD Pain Rating 1,2,3 Stop: 06/28/19 18:46 Last Infusion: 05/29/19 22:35 Dose: Infused Documented by: Dexamethasone Sodium Phosphate (8 mg/ Syringe) 2 mls @ 1 mls/min IV Q8 JIL Stop: 06/29/19 13:59 Last Admin: 05/31/19 05:46 Dose: 1 mls/min Documented by: Influenza Virus Vaccine Quadrival (Flu Vaccine, Do Not Administer) 1 ea N/A PRN PRN PRN Reason: Notification Stop: 06/28/19 18:46 Lisinopril (Zestril) 5 mg PO QAM [facility] Stop: 06/30/19 08:59 Last Admin: 05/31/19 09:08 Dose: 5 mg Documented by: Lorazepam (Ativan) 0.5 mg PO Q8H PRN PRN Reason: Sedation/Anxiety Stop: 06/28/19 18:46 Last Admin: 05/30/19 07:31 Dose: 0.5 mg Documented by: Magnesium Hydroxide (Milk Of Magnesia) 30 ml PO DAILY PRN PRN Reason: Constipation Stop: 06/28/19 18:46 Metoclopramide HCl (Reglan) 10 mg IV Q6H PRN PRN Reason: Nausea &/or Vomiting Stop: 06/28/19 18:46 Metoprolol Succinate (Toprol Xl) 50 mg PO QAM [facility] Stop: 06/30/19 08:59 Last Admin: 05/31/19 08:21 Dose: 50 mg Documented by: Naloxone HCl (Narcan) 0.1 mg IV Q5M PRN; Protocol PRN Reason: Oversedation/Resp Depression Stop: 06/28/19 18:46 Ondansetron HCl (Zofran) 4 mg IV Q6H PRN PRN Reason: Nausea &/or Vomiting Stop: 06/28/19 18:46 Last Admin: 05/30/19 14:15 Dose: 4 mg Documented by: Ondansetron HCl (Zofran Tab) 4 mg PO Q6H PRN PRN Reason: Nausea Stop: 06/28/19 18:46 Oxycodone HCl (Roxicodone Immediate Rel) 5 - 10 mg PO Q4H PRN PRN Reason: Moderate-Severe Pain Stop: 06/12/19 18:46 Last Admin: 05/31/19 08:21 Dose: 10 mg Documented by: Pneumococcal Polyvalent Vaccine (Pneumococcal Vacc, Do Not Administer) 1 ea N/A PRN PRN PRN Reason: Notification Stop: 06/28/19 18:46 Polyethylene Glycol (Miralax Powder Packet) 17 gm PO Q6 [facility] Stop: 06/29/19 05:59 Last Admin: 09/20/19 05:46 Dose: 17 gm Documented by: Senna/Docusate Sodium (Senokot S) 2 tab PO HS JIL Stop: 06/28/19 20:59 Last Admin: 05/30/19 20:37 Dose: 2 tab Documented by: Sodium Biphosphate/Sodium Phosphate (Fleet Enema) 132 ml ND ONE PRN PRN Reason: Constipation Stop: 06/28/19 18:46 Tramadol HCl (Ultram) 50 - 100 mg PO Q4H PRN PRN Reason: Moderate-Severe pain Stop: 06/28/19 18:46 Last Admin: 05/30/19 22:43 Dose: 100 mg Documented by:
[2019-05-31] MEDS: DOCUSATE SODIUM/SENNA 50/8.6MG TAB PO SCH (21:37)
[2019-06-01] MEDS: ALUMINUM/MAGNESIUM SUSP 30 ML UDC PO PRN (00:55)
[2019-06-01] MEDS: OXYCODONE HCL IR 5 MG TAB (IMMEDIATE RELEASE) PO PRN ×5 (01:39→19:45)
[2019-06-01] MEDS: POLYETHYLENE (MIRALAX) 17 GM PACK PO SCH ×3 (06:15→18:22)
[2019-06-01] MEDS: DEXAMETHASONE SOD PHOSPHATE 8 MG in SYRINGE 0 ML IV SCH ×3 (06:17→21:25)
[2019-06-01] MEDS: LISINOPRIL 5 MG TAB PO SCH (07:31)
[2019-06-01] MEDS: GABAPENTIN 300 MG CAP PO SCH ×3 (07:32→19:46)
[2019-06-01] MEDS: METOPROLOL SUCC 50MG EXT REL TAB PO SCH (07:32)
--- NOTE | 2019-06-01 07:51 | Orthopedic Progress Note ---
Date of Service June 01, 2019 Assessment & Plan (1) Spinal stenosis, lumbar region with neurogenic claudication: At this point will continue with GI DVT prophylaxis as well as pain control per like to make sure that his diabetes under control and blood pressure is also under control. We will keep him today and likely discharge him to home tomorrow. Subjective Patient was seen bedside in room 312. He is postop day #3. He continues to have pain in the back itself and some intermittent pain that goes down his right and left leg. His renal function has improved to a degree. He denies any other numbness, tingling, or paresthesias. Physical Exam Physical Exam: On exam he is alert and oriented. His lower extremity motor exam reveals no focal atrophy strength and sensation both intact. His calves are supple nontender his abdomen soft and nontender. His dressings clean dry and intact. His MAENA drain is placed out 35 cc on last shift. Results & Data Vital Signs (Past 12 Hours) Vital Signs Temp Pulse Resp BP Pulse Ox 06/01/19 07:00 36.6 C 59 L 18 174/98 H 97 06/01/19 00:00 37.1 C 57 L 18 169/83 H 99
--- NOTE | 2019-06-01 12:18 | Hospitalist Progress Note ---
Date of Service June 01, 2019 Assessment & Plan (1) Spinal stenosis, lumbar region with neurogenic claudication: POD# 3 S/P revision and decompression fusion L4-L5, L5-S1 by Dr. Arlette JOHANSEN#350ml. Total AMENA drain output: 470ml -pain management per ortho -wound management per ortho -PT/OT as appropriate -DVT prophylaxis per ortho- SCDs -incentive spirometry -Hb from 15 pre-op on 05/23/19, continue to monitor H&H -H&H remain stable at 12.3 on 05/31 (2) HTN (hypertension): BP Elevated Pt reports stopped taking BP medications. Pt was prescribed Diltiazem 180mg daily in 2018, and was changed to metoprolol succinate 50mg daily (last filled 01/2019) -Today will start lopressor 25mg po BID, with plan to restart metoprolol succinate 50mg daily starting tomorrow -Blood pressure remains elevated and we will add lisinopril 5 mg daily on top of Toprol-XL 50 mg daily -Blood pressure has been improving (3) Paroxysmal A-fib: Pt was prescribed Diltiazem 180mg daily in 2017, and was changed to met oprolol succinate 50mg daily (last filled 01/2019) and has not taken since. Pt reports has declined anticoagulation in past. Regular rhythm on auscultation -Start lopressor 25mg po BID today -Will restart metoprolol succinate 50mg daily starting tomorrow -Heart rate is controlled and is in sinus rhythm -Remains asymptomatic (4) CAD (coronary artery disease): Nonobstructive Pt with hx med noncompliance in past and not taking medications at home -No current CP or SOB (5) Hx of partial nephrectomy: Pt with hx renal cell CA s/p Right partial nephrectomy CKD II H/O Cr: 1.3, GFR: 63 on 03/15/19; Cr: 1.16 on 03/25/19 (pt was able to put up history lab results on [facility] betty on his phone) Pre-op labs: BUN: 20, Cr: 1.42, GFR: 63 on 05/23/19 Today Cr: 1.4 -Monitor renal functions -Avoid nephrotoxic agents when possible -Creatinine has been normalized -We will monitor PRP (6) DVT prophylaxis: -Teds/SCDs as per spine ortho (7) Acute renal failure (ARF): Noted to have creatinine of 1.42 Acute renal failure secondary to dehydration Creatinine has been normalized Medically stable Subjective V05/31 Patient was seen and examined in medical floor He is worried about having high blood pressure but is not having any acute symptoms He denies any chest pain or shortness of breath Still complains to have back pain without radiation He has been getting physical therapy following lumbar surgery 06/01 The patient was seen and examined in medical floor He denies any symptoms except pain at the back He has been getting physical therapy without any problem Blood pressure seems to be coming down Review of Systems Review of Systems: All systems reviewed and are unremarkable except as noted below Musculoskeletal: + back pain (Status post lumbar surgery) Physical Exam Physical Exam: No apparent distress at rest Constitutional: + acute distress (Secondary to back pain), + ill appearing and + morbidly obese Eyes: PERRL, conjunctivae normal, anicteric sclerae ENMT: external ear and nose normal, oropharynx normal Mouth: no TMJ abnormality Mallampati Class: III Neck: trachea midline, no thyromegaly normal visual inspection Respiratory: normal respiratory effort Auscultation: lungs clear to auscultation bilaterally Cardiovascular: Rate/Rhythm: regular rate and regular rhythm Heart Sounds: no murmur Extremities: no edema Gastrointestinal (Abdomen): Inspection/Auscultation: abdomen normal to inspection Percussion/Palpation: abdomen soft Musculoskeletal: Ongoing back pain Neurologic: moves all extremities; no focal motor deficits Psychiatric: Orientation: alert and oriented x 3 Lymphatic: no cervical or axillary lymphadenopathy Results & Data Vital Signs (Past 12 Hours) Vital Signs Temp Pulse Resp BP Pulse Ox 06/01/19 10:30 63 154/87 H 06/01/19 07:00 36.6 C 59 L 18 174/98 H 97 Medications Administered Current Inpatient Medications Acetaminophen (Tylenol) 1,000 mg PO Q8H PRN PRN Reason: MILD Pain Rating 1,2,3 Stop: 06/28/19 18:46 Al Hydrox/Mg Hydrox/Simethicone (Maalox) 30 ml PO Q6H PRN PRN Reason: Dyspepsia Stop: 06/28/19 18:46 Last Admin: 06/01/19 00:55 Dose: 30 ml Documented by: Bisacodyl (Dulcolax) 10 mg [place] DAILY PRN PRN Reason: Constipation Stop: 06/28/19 18:46 Diphenhydramine HCl (Benadryl Capsule) 25 mg PO Q6H PRN PRN Reason: Allergic Rhinitis/Insomnia Stop: 06/28/19 18:46 Famotidine (Pepcid) 20 mg PO Q12H PRN PRN Reason: Dyspepsia Stop: 06/28/19 18:46 Last Admin: 05/31/19 21:40 Dose: 20 mg Documented by: Gabapentin (Neurontin) 300 mg PO TID JIL Stop: 06/29/19 13:59 Last Admin: 06/01/19 07:32 Dose: 300 mg Documented by: Hydromorphone HCl (Dilaudid) 0.5 - 1 mg IV Q3H PRN PRN Reason: Pain Stop: 06/12/19 18:46 Last Admin: 05/30/19 09:22 Dose: 1 mg Documented by: Hydroxyzine HCl (Vistaril) 25 mg PO Q8H PRN PRN Reason: Anxiety Stop: 06/28/19 18:46 Lorazepam (Ativan) 0.5 mg in 1 mls @ 0.5 mls/min IV Q8H PRN PRN Reason: Sedation/Anxiety Stop: 06/28/19 18:46 Promethazine HCl 12.5 mg/ (Sodium Chloride) 50.5 mls @ 204 mls/hr IV Q6H PRN PRN Reason: Nausea &/or Vomiting Stop: 06/28/19 18:46 Acetaminophen (Ofirmev) 1,000 mg in 100 mls @ 400 mls/hr IV Q8 PRN PRN Reason: MILD Pain Rating 1,2,3 Stop: 06/28/19 18:46 Last Infusion: 05/29/19 22:35 Dose: Infused Documented by: Dexamethasone Sodium Phosphate (8 mg/ Syringe) 2 mls @ 1 mls/min IV Q8 JIL Stop: 06/29/19 13:59 Last Admin: 06/01/19 06:17 Dose: 1 mls/min Documented by: Influenza Virus Vaccine Quadrival (Flu Vaccine, Do Not Administer) 1 ea N/A PRN PRN PRN Reason: Notification Stop: 06/28/19 18:46 Lisinopril (Zestril) 5 mg PO QAM [facility] Stop: 06/30/19 08:59 Last Admin: 06/01/19 07:31 Dose: 5 mg Documented by: Lorazepam (Ativan) 0.5 mg PO Q8H PRN PRN Reason: Sedation/Anxiety Stop: 06/28/19 18:46 Last Admin: 05/30/19 07:31 Dose: 0.5 mg Documented by: Magnesium Hydroxide (Milk Of Magnesia) 30 ml PO DAILY PRN PRN Reason: Constipation Stop: 06/28/19 18:46 Metoclopramide HCl (Reglan) 10 mg IV Q6H PRN PRN Reason: Nausea &/or Vomiting Stop: 06/28/19 18:46 Metoprolol Succinate (Toprol Xl) 50 mg PO QAM [facility] Stop: 06/30/19 08:59 Last Admin: 06/01/19 07:32 Dose: 50 mg Documented by: Naloxone HCl (Narcan) 0.1 mg IV Q5M PRN; Protocol PRN Reason: Oversedation/Resp Depression Stop: 06/28/19 18:46 Ondansetron HCl (Zofran) 4 mg IV Q6H PRN PRN Reason: Nausea &/or Vomiting Stop: 06/28/19 18:46 Last Admin: 05/30/19 14:15 Dose: 4 mg Documented by: Ondansetron HCl (Zofran Tab) 4 mg PO Q6H PRN PRN Reason: Nausea Stop: 06/28/19 18:46 Oxycodone HCl (Roxicodone Immediate Rel) 5 - 10 mg PO Q4H PRN PRN Reason: Moderate-Severe Pain Stop: 06/12/19 18:46 Last Admin: 06/01/19 10:28 Dose: 10 mg Documented by: Pneumococcal Polyvalent Vaccine (Pneumococcal Vacc, Do Not Administer) 1 ea N/A PRN PRN PRN Reason: Notification Stop: 06/28/19 18:46 Polyethylene Glycol (Miralax Powder Packet) 17 gm PO Q6 JIL Stop: 06/29/19 05:59 Last Admin: 06/01/19 06:15 Dose: 17 gm Documented by: Senna/Docusate Sodium (Senokot S) 2 tab PO HS [facility] Stop: 06/28/19 20:59 Last Admin: 05/31/19 21:37 Dose: 2 tab Documented by: Sodium Biphosphate/Sodium Phosphate (Fleet Enema) 132 ml [place] ONE PRN PRN Reason: Constipation Stop: 06/28/19 18:46 Tramadol HCl (Ultram) 50 - 100 mg PO Q4H PRN PRN Reason: Moderate-Severe pain Stop: 06/28/19 18:46 Last Admin: 05/30/19 22:43 Dose: 100 mg Documented by:
[2019-06-01] MEDS ORDERED: Nursing to Pharmacy Communication ONE (19:38)
[2019-06-01] MEDS: DOCUSATE SODIUM/SENNA 50/8.6MG TAB PO SCH (19:46)
[2019-06-02] MEDS: OXYCODONE HCL IR 5 MG TAB (IMMEDIATE RELEASE) PO PRN ×2 (05:26→11:02)
[2019-06-02] MEDS: DEXAMETHASONE SOD PHOSPHATE 8 MG in SYRINGE 0 ML IV SCH (05:27)
[2019-06-02 05:35] LABS: Basophils # (auto) 0.01 K/uL (0-0.2); Basophils % (auto) 0.1 %; Hematocrit (blood only) 38.6 % (42-52); Hemoglobin 12.9 g/dL (14.0-18.0); Immature Granulocytes # (auto) 0.39 K/uL (0.00-0.02); Immature Granulocytes % (auto) 2.1 %; Lymphocytes % (auto) 9.1 %; Mean Corpuscular Hemoglobin 27.8 pg (25-34); Mean Corpuscular Hgb Conc 33.4 g/dL (32-36); Mean Corpuscular Volume 83.2 fL (80-100); Mean Platelet Volume 10.4 fL (7.4-10.4); Monocytes # (auto) 1.26 K/uL (0.11-0.59); Monocytes % (auto) 6.8 %; Neutrophils # (auto) 15.29 K/uL (1.4-6.5); Neutrophils % (auto) 81.9 %; Nucleated RBC # (auto) 0.03 K/uL (0-0); Nucleated RBC % (auto) 0.2 %; Platelet Count 260 K/uL (130-400); RDW Coefficient of Variation 14.6 % (11.5-14.5); RDW Standard Deviation 44.3 fL (36.4-46.3); Red Blood Count 4.64 M/uL (4.7-6.1); White Blood Count 18.65 K/uL (4.8-10.8)
[2019-06-02 06:00] LABS: BUN Creatinine Ratio 21.6 (10-20); Calcium 8.8 mg/dl (8.5-10.1); Creatinine Clr Calc Pharmacy 94.9 ml/min; Est GFR (Non-African American) 73.3; Potassium 4.6 mmol/L (3.5-5.1)
[2019-06-02] MEDS: LISINOPRIL 5 MG TAB PO SCH (07:35)
[2019-06-02] MEDS: GABAPENTIN 300 MG CAP PO SCH (07:35)
[2019-06-02] MEDS ORDERED: LISINOPRIL 5 MG TAB PO STA (08:16)
[2019-06-02] MEDS: METOPROLOL SUCC 50MG EXT REL TAB PO SCH (08:37)
[2019-06-02] MEDS ORDERED: LISINOPRIL 10 MG TAB PO SCH (09:00)
--- NOTE | 2019-06-02 09:07 | Discharge Summary ---
Date of Service June 02, 2019 Admission HPI Per Admitting Provider This is a 58-year-old male well-known to me that presents with chronic persistent back pain after failing extensive course of nonoperative care is here for surgical intervention. Discharge Data Consultations 05/29/19 18:47 Consult Case Management - Discharge Planning Routine Consult Hospitalist Routine Procedures Performed Operation Date: 05/29/19 12:45 Actual Procedures p L4-L5, L5-S1 Revision Decompression and Fusion with bone morphogenetic protein and Osteoamp allograft, Spinal Cord Monitoring(Not Applicable) - Harvey Chong, [facility] Course (1) Spinal stenosis, lumbar region with neurogenic claudication: Patient is a 58-year-old male with history physical examination and radiographic images consistent with spinal stenosis. For this reason brought to the operating room underwent a revision decompression and fusion. This performed by Dr. Chong under general anesthesia. He left the operating with a AMENA drain Perdomo placed transferred to PACU in stable condition. He is then transferred to the orthopedic floor he was placed on GI DVT prophylaxis. He is seen by physical therapy postop day 1. At this point he has met discharge crite jamal and is safe for home discharge. His instructions were reviewed in detail. He is to follow-up with our office in 2 weeks or sooner if he develops any increased pain drainage or increased leg pain.
--- NOTE | 2019-06-02 11:05 | Hospitalist Progress Note ---
Date of Service June 02, 2019 Assessment & Plan (1) Spinal stenosis, lumbar region with neurogenic claudication: POD# 4 S/P revision and decompression fusion L4-L5, L5-S1 by Dr. Arlette JOHANSEN#350ml. Total AMENA drain output: 470ml -pain management per ortho -wound management per ortho -PT/OT as appropriate -DVT prophylaxis per ortho- SCDs -incentive spirometry -Hb from 15 pre-op on 05/23/19, continue to monitor H&H -H&H remain stable at 12.3 on 05/31 -Blood counts remain unremarkable (2) HTN (hypertension): BP Elevated Pt reports stopped taking BP medications. Pt was prescribed Diltiazem 180mg daily in 2018, and was changed to metoprolol succinate 50mg daily (last filled 01/2019) -Today will start lopressor 25mg po BID, with plan to restart metoprolol succinate 50mg daily starting tomorrow -Blood pressure remains elevated and we will add lisinopril 5 mg daily on top of Toprol-XL 50 mg daily -Blood pressure has been improving -Blood pressure was noted to be high at 176/100 this morning -The lisinopril dose was increased to 10 mg once daily -Denies any symptoms -He will be going home on lisinopril 10 mg and metoprolol XL 50 mg daily (3) Paroxysmal A-fib: Pt was prescribed Diltiazem 180mg daily in 2018, and was changed to metoprolol succinate 50mg daily (last filled 01/2019) and has not taken since. Pt reports has declined anticoagulation in past. Regular rhythm on auscultation -Start lopressor 25mg po BID today -Will restart metoprolol succinate 50mg daily starting tomorrow -Heart rate is controlled and is in sinus rhythm -Remains asymptomatic (4) CAD (coronary artery disease): Nonobstructive Pt with hx med noncompliance in past and not taking medications at home -No current CP or SOB (5) Hx of partial nephrectomy: Pt with hx renal cell CA s/p Right partial nephrectomy CKD II H/O Cr: 1.3, GFR: 63 on 03/15/19; Cr: 1.16 on 03/25/19 (pt was able to put up history lab results on [facility] betty on his phone) Pre-op labs: BUN: 20, Cr: 1.42, GFR: 63 on 05/23/19 Today Cr: 1.4 -Monitor renal functions -Avoid nephrotoxic agents when possible -Creatinine has been normalized -We will monitor PRP-kidney function remains normal (6) DVT prophylaxis: -Teds/SCDs as per spine ortho (7) Acute renal failure (ARF): Noted to have creatinine of 1.42 Acute renal failure secondary to dehydration Creatinine has been normalized Medically stable to be discharged Subjective V05/31 Patient was seen and examined in medical floor He is worried about having high blood pressure but is not having any acute symptoms He denies any chest pain or shortness of breath Still complains to have back pain without radiation He has been getting physical therapy following lumbar surgery 06/01 The patient was seen and examined in medical floor He denies any symptoms except pain at the back He has been getting physical therapy without any problem Blood pressure seems to be coming down 06/02 Patient was seen and examined the medical floor He was noted to have high blood pressure of 176/100 this morning He denies any symptoms He has been ambulating and voiding to go home this afternoon Review of Systems Review of Systems: All systems reviewed and unremarkable except as noted below Musculoskeletal: + back pain (Status post lumbar back surgery and getting better) Physical Exam Physical Exam: Sitting at the age of the bed without any symptoms Constitutional: well developed, well nourished and + morbidly obese; no acute distress Eyes: PERRL, conjunctivae normal, anicteric sclerae ENMT: external ear and nose normal, oropharynx normal Mouth: no TMJ abn ormality Mallampati Class: III Neck: trachea midline, no thyromegaly normal visual inspection Respiratory: normal respiratory effort Auscultation: lungs clear to auscultation bilaterally Cardiovascular: Rate/Rhythm: regular rate and regular rhythm Heart Sounds: no murmur Extremities: no edema Gastrointestinal (Abdomen): Inspection/Auscultation: abdomen normal to inspection Percussion/Palpation: abdomen soft Musculoskeletal: Extremities: strength 5/5 throughout Neurologic: moves all extremities; no focal motor deficits Psychiatric: Orientation: alert and oriented x 3 Lymphatic: no cervical or axillary lymphadenopathy Results & Data Vital Signs (Past 12 Hours) Vital Signs Temp Pulse Pulse Resp BP BP Pulse Ox 06/02/19 10:08 36.7 C 71 63 18 176/100 H 157/86 H 100 06/02/19 09:26 63 157/86 H 06/02/19 07:33 54 L 176/100 H 06/02/19 06:34 36.7 C 54 L 18 161/95 H 100 06/01/19 23:13 36.4 C L 65 16 159/85 H 98 Laboratory Results Short CBC 06/02/19 Range/Units 04:58 WBC 18.65 H (4.8-10.8) K/uL Hgb 12.9 L (14.0-18.0) g/dL Hct 38.6 L (42-52) % Plt Count 260 (130-400) K/uL BMP 06/02/19 04:58 Sodium 135 L Potassium 4.6 Chloride 101 Carbon Dioxide 29 BUN 24 H Creatinine 1.11 Glucose 208 H Calcium 8.8 Medications Administered Current Inpatient Medications Acetaminophen (Tylenol) 1,000 mg PO Q8H PRN PRN Reason: MILD Pain Rating 1,2,3 Stop: 06/28/19 18:46 Al Hydrox/Mg Hydrox/Simethicone (Maalox) 30 ml PO Q6H PRN PRN Reason: Dyspepsia Stop: 06/28/19 18:46 Last Admin: 06/01/19 00:55 Dose: 30 ml Documented by: Bisacodyl (Dulcolax) 10 mg MA DAILY PRN PRN Reason: Constipation Stop: 06/28/19 18:46 Diphenhydramine HCl (Benadryl Capsule) 25 mg PO Q6H PRN PRN Reason: Allergic Rhinitis/Insomnia Stop: 06/28/19 18:46 Famotidine (Pepcid) 20 mg PO Q12H PRN PRN Reason: Dyspepsia Stop: 06/28/19 18:46 Last Admin: 05/31/19 21:40 Dose: 20 mg Documented by: Gabapentin (Neurontin) 300 mg PO TID JIL Stop: 06/29/19 13:59 Last Admin: 06/02/19 07:35 Dose: 300 mg Documented by: Hydromorphone HCl (Dilaudid) 0.5 - 1 mg IV Q3H PRN PRN Reason: Pain Stop: 06/12/19 18:46 Last Admin: 05/30/19 09:22 Dose: 1 mg Documented by: Hydroxyzine HCl (Vistaril) 25 mg PO Q8H PRN PRN Reason: Anxiety Stop: 06/28/19 18:46 Lorazepam (Ativan) 0.5 mg in 1 mls @ 0.5 mls/min IV Q8H PRN PRN Reason: Sedation/Anxiety Stop: 06/28/19 18:46 Promethazine HCl 12.5 mg/ (Sodium Chloride) 50.5 mls @ 204 mls/hr IV Q6H PRN PRN Reason: Nausea &/or Vomiting Stop: 06/28/19 18:46 Acetaminophen (Ofirmev) 1,000 mg in 100 mls @ 400 mls/hr IV Q8 PRN PRN Reason: MILD Pain Rating 1,2,3 Stop: 06/28/19 18:46 Last Infusion: 05/29/19 22:35 Dose: Infused Documented by: Dexamethasone Sodium Phosphate (8 mg/ Syringe) 2 mls @ 1 mls/min IV Q8 JIL Stop: 06/29/19 13:59 Last Admin: 06/02/19 05:27 Dose: 1 mls/min Documented by: Influenza Virus Vaccine Quadrival (Flu Vaccine, Do Not Administer) 1 ea N/A PRN PRN PRN Reason: Notification Stop: 06/28/19 18:46 Lisinopril (Zestril) [facility] [place] Stop: 07/03/19 08:59 Lorazepam (Ativan) 0.5 mg PO Q8H PRN PRN Reason: Sedation/Anxiety Stop: 06/28/19 18:46 Last Admin: 05/30/19 07:31 Dose: 0.5 mg Documented by: Magnesium Hydroxide (Milk Of Magnesia) 30 ml PO DAILY PRN PRN Reason: Constipation Stop: 06/28/19 18:46 Metoclopramide HCl (Reglan) 10 mg IV Q6H PRN PRN Reason: Nausea &/or Vomiting Stop: 06/28/19 18:46 Metoprolol Succinate (Toprol Xl) 50 mg PO QAM [facility] Stop: 06/30/19 08:59 Last Admin: 06/02/19 08:37 Dose: 50 mg Documented by: Naloxone HCl (Narcan) 0.1 mg IV Q5M PRN; Protocol PRN Reason: Oversedation/Resp Depression Stop: 06/28/19 18:46 Ondansetron HCl (Zofran) 4 mg IV Q6H PRN PRN Reason: Nausea &/or Vomiting Stop: 06/28/19 18:46 Last Admin: 05/30/19 14:15 Dose: 4 mg Documented by: Ondansetron HCl (Zofran Tab) 4 mg PO Q6H PRN PRN Reason: Nausea Stop: 06/28/19 18:46 Oxycodone HCl (Roxicodone Immediate Rel) 5 - 10 mg PO Q4H PRN PRN Reason: Moderate-Severe Pain Stop: 06/12/19 18:46 Last Admin: 06/02/19 05:26 Dose: 10 mg Documented by: Pneumococcal Polyvalent Vaccine (Pneumococcal Vacc, Do Not Administer) 1 ea N/A PRN PRN PRN Reason: Notification Stop: 06/28/19 18:46 Senna/Docusate Sodium (Senokot S) 2 tab PO HS JIL Stop: 06/28/19 20:59 Last Admin: 06/01/19 19:46 Dose: Not Given Documented by: Sodium Biphosphate/Sodium Phosphate (Fleet Enema) 132 ml MA ONE PRN PRN Reason: Constipation Stop: 06/28/19 18:46 Tramadol HCl (Ultram) 50 - 100 mg PO Q4H PRN PRN Reason: Moderate-Severe pain Stop: 06/28/19 18:46 Last Admin: 05/30/19 22:43 Dose: 100 mg Documented by:
[2019-06-03] MEDS ORDERED: LISINOPRIL 10 MG TAB PO SCH (09:00)
== END 2019-06-02 11:18 | disposition home or self-care (01) | DRG 454 ==
LOC: ASU 10:25 → 3E 17:12
DX: N17.9 Acute kidney failure, unspecified; F17.210 Nicotine dependence, cigarettes, uncomplicated; Z98.1 Arthrodesis status; I48.0 Paroxysmal atrial fibrillation; M48.062 Spinal stenosis, lumbar region with neurogenic claudication; Z85.528 Personal history of other malignant neoplasm of kidney; I25.10 Atherosclerotic heart disease of native coronary artery without angina pectoris; N18.2 Chronic kidney disease, stage 2 (mild); E66.9 Obesity, unspecified; Z68.37 Body mass index [BMI] 37.0-37.9, adult; Z90.5 Acquired absence of kidney; H54.10 Blindness, one eye, low vision other eye, unspecified eyes; I12.9 Hypertensive chronic kidney disease with stage 1 through stage 4 chronic kidney disease, or unspecified chronic kidney disease

== ENCOUNTER 2019-06-25 14:42 | Inpatient (IN) ==
[2019-06-25] MEDS ORDERED: METOCLOPRAMIDE HCL INJ 5 MG/ML 2 ML VIAL IV PRN (16:00)
[2019-06-25] MEDS ORDERED: LORazepam 1 MG TAB PO PRN (16:00)
[2019-06-25] MEDS ORDERED: LORazepam 1 MG/2 ML VIAL IV PRN (16:00)
[2019-06-25] MEDS ORDERED: HYDROmorphone INJ 0.5 MG/0.5 ML SYR IV PRN (16:00)
[2019-06-25] MEDS ORDERED: PROMETHAZINE HCL 12.5 MG in SODIUM CHLORIDE 0.9% 50 ML IV PRN (16:00)
[2019-06-25] MEDS ORDERED: ONDANSETRON 4 MG TAB PO PRN (16:00)
[2019-06-25] MEDS ORDERED: HYDROmorphone INJ 1 MG/ML SYRINGE IV PRN (16:00)
[2019-06-25] MEDS ORDERED: ONDANSETRON INJ 2 MG/ML 2 ML VIAL IV PRN (16:00)
[2019-06-25] MEDS ORDERED: ACETAMINOPHEN 500 MG TAB PO PRN (16:00)
[2019-06-25] MEDS ORDERED: TRAMADOL HCL 50 MG TABLET PO PRN (16:04)
--- NOTE | 2019-06-25 16:09 | History & Physical Report ---
Date of Service June 25, 2019 Assessment & Plan (1) Lumbar back pain with radiculopathy affecting left lower extremity: revision interbody fusion L5-S1 Present on Admission?: Yes History of Present Illness Chief Complaint: worsening left leg pain Primary Care Provider: NO PCP 58 year old status post lumbar revison fusion with worsening leg pain and weakness. Imaging demonstrates posterior migration of interbody cage Allergies Allergy/AdvReac Type Severity Reaction Status Date / Time ciprofloxacin [From Cipro] Allergy Unknown Hives Verified 05/29/19 11:01 morphine AdvReac Unknown GI UPSET Verified 05/29/19 11:01 Home Medications Home Medications Medication Instructions Recorded Confirmed Type tramadol 50 mg PO Q6H PRN 05/20/19 05/29/19 History oxycodone 5 mg PO Q4H PRN #30 tab 05/30/19 Rx tramadol 50 mg PO Q4H PRN #30 tab 05/30/19 Rx gabapentin 300 mg PO TID #90 cap 05/31/19 Rx lisinopril 10 mg PO QAM 30 Days #30 tab 06/02/19 Rx metoprolol succinate 50 mg PO QAM 30 Days #30 tab 06/02/19 Rx Past Med/Surg History Medical History CAD (coronary artery disease) (Chronic) Paroxysmal A-fib (Chronic) Chronic back pain (Chronic) B/L LE radiculopathy 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 Hx of renal cell cancer (Chronic) s/p right partial nephrectomy (no chemo or radiation) Obesity (Chronic) HTN (hypertension) (Chronic) no meds Surgical History History of cardiac cath (Chronic) non obstructive CAD Hx of partial nephrectomy (Chronic) RIGHT History of right hip replacement (Chronic) History of arthroscopic knee surgery (Chronic) History of back surgery (Chronic) X3 Hx of eye surgery (Chronic) RIGHT Social History Preferred Language: Burundian Communication Ability: Effective Beliefs That Will Affect Care: None Current Living Situation: Significant Other Feels Safe at Home: Yes Smoking Status: Current every day smoker Tobacco Type: cigarettes ; Cigarettes Per Day: 10 cigarettes x 30 years ; Second Hand Exposure: Yes (DAILY) ; Hx Alcohol Use: Yes Alcohol Intake Frequency: Rarely Hx Substance Use: No Physical Exam Physical Exam: obvious discomfort. weakness to left foot Code Status & VTE Plan VTE Prophylaxis Plan VTE Prophylaxis will be ordered: Yes
[2019-06-25 16:51] LABS: Basophils # (auto) 0.01 K/uL (0-0.2); Basophils % (auto) 0.2 %; Eosinophils % (auto) 1.8 %; Hematocrit (blood only) 37.1 % (42-52); Hemoglobin 12.1 g/dL (14.0-18.0); Immature Granulocytes # (auto) 0.03 K/uL (0.00-0.02); Immature Granulocytes % (auto) 0.6 %; Lymphocytes # (auto) 1.54 K/uL (1.2-3.4); Lymphocytes % (auto) 28.5 %; Mean Corpuscular Hemoglobin 27.1 pg (25-34); Mean Corpuscular Hgb Conc 32.6 g/dL (32-36); Mean Corpuscular Volume 83.2 fL (80-100); Mean Platelet Volume 9.4 fL (7.4-10.4); Monocytes # (auto) 0.41 K/uL (0.11-0.59); Monocytes % (auto) 7.6 %; Neutrophils # (auto) 3.32 K/uL (1.4-6.5); Neutrophils % (auto) 61.3 %; Platelet Count 315 K/uL (130-400); RDW Standard Deviation 45.3 fL (36.4-46.3); Red Blood Count 4.46 M/uL (4.7-6.1); White Blood Count 5.41 K/uL (4.8-10.8)
[2019-06-25] MEDS: OXYCODONE HCL IR 5 MG TAB (IMMEDIATE RELEASE) PO PRN ×2 (16:54→23:50)
[2019-06-25] MEDS: LACTATED RINGER'S 1,000 ML IV SCH (16:57)
[2019-06-25 17:08] LABS: Alanine Aminotransferase 77 U/L (12-78); Albumin Level 2.8 gm/dl (3.4-5.0); Aspartate Aminotransferase 29 U/L (15-37); BUN Creatinine Ratio 19.2 (10-20); Blood Urea Nitrogen 21 mg/dl (7-18); Calcium 8.5 mg/dl (8.5-10.1); Carbon Dioxide 25 mmol/L (21-32); Chloride 111 mmol/L (98-107); Est GFR (African American) 85.9; Est GFR (Non-African American) 74.1; Glucose 87 mg/dl (70-99); Potassium 4.1 mmol/L (3.5-5.1); Sodium 141 mmol/L (136-145)
[2019-06-25 17:11] LABS: Albumin Globulin Ratio 0.7 (0.9-2); Alkaline Phosphatase 96 U/L (45-117); Bilirubin,Total 0.3 mg/dl (0.2-1); Globulin 4.3 gm/dl (2.5-4.0); Total Protein 7.1 gm/dl (6.4-8.2)
--- NOTE | 2019-06-25 17:19 | Anesthesiology Consultation ---
Date of Service June 25, 2019 Assessment & Plan (1) Encounter for pre-operative examination: History Surgery Operation Date: 06/26/19 07:00 Proposed Procedures p L5-S1 Revision of Lumbar Fusion - Harvey Chong DO Allergies Allergy/AdvReac Type Severity Reaction Status Date / Time ciprofloxacin [From Cipro] Allergy Unknown Hives Verified 05/29/19 11:01 morphine AdvReac Unknown GI UPSET Verified 05/29/19 11:01 Medications Home Medications Medication Instructions Recorded Confirmed Last Taken tramadol 50 mg PO Q6H PRN 05/20/19 05/29/19 Unknown oxycodone 5 mg PO Q4H PRN #30 tab 05/30/19 Unknown tramadol 50 mg PO Q4H PRN #30 tab 05/30/19 Unknown gabapentin 300 mg PO TID #90 cap 05/31/19 Unknown lisinopril 10 mg PO QAM 30 Days #30 tab 06/02/19 Unknown metoprolol succinate 50 mg PO QAM 30 Days #30 tab 06/02/19 Unknown Active Medications Generic Name Dose Route Start Last Admin Trade Name Freq PRN Reason Stop Dose Admin Lactated Ringer's 1,000 mls @ 100 mls/hr 06/25/19 16:00 06/25/19 16:57 Lr IV 07/25/19 15:59 100 mls/hr .Q10H JIL Administration Oxycodone HCl 5 - 10 mg 06/25/19 16:00 06/25/19 16:54 Roxicodone Immediate Rel PO 07/09/19 15:59 10 mg Q4H PRN Administration Moderate-Severe Pain Past Medical History Medical History CAD (coronary artery disease) (Chronic) Paroxysmal A-fib (Chronic) Chronic back pain (Chronic) B/L LE radiculopathy 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 Hx of renal cell cancer (Chronic) s/p right partial nephrectomy (no chemo or radiation) Obesity (Chronic) HTN (hypertension) (Chronic) no meds Past Surgical History Surgical History History of cardiac cath (Chronic) non obstructive CAD Hx of partial nephrectomy (Chronic) RIGHT History of right hip replacement (Chronic) History of arthroscopic knee surgery (Chronic) History of back surgery (Chronic) X3, last back surgery 05/2019 Hx of eye surgery (Chronic) RIGHT Social History Smoking Status: Current every day smoker tobacco type: cigarettes Smoking cigarettes per day: 10 cigarettes x 30 years Hx Alcohol Use: Yes alcohol intake frequency: holidays/special occasions only Hx Substance Use: No substance use type: does not use Physical Exam Vital Signs Last Vital Signs BP 180/105 H 06/25/19 17:03 Testing Laboratory Results 06/25/19 16:35 06/25/19 16:35 Electrocardiogram Date: 02/16/19 SR at 71bpm. Borderline inferior leads TWA. Chest X-Ray Date: 03/25/19 Findings: + NAD Other Testing Cardiology note from Dr. Kumar 12/07/2017: Cardiac cath 10/2015. Nonobstructive coronaries and normal LV function. Echo LVEF 60-65%. CHF clinically compensated. Echocardiogram Date: 10/22/17 LVEF 60-65%. Borderline RVD. Mild LAE. Mild LEXI. Consistent with LVH. Stress Test Date: 02/19/18 Type: nuclear LVEF 48%. "Normal" LV Wall motion. Consistent with diaphragmatic attenuation artifact. 50% MPHR. No suggestion of ischemia or infarct.
[2019-06-25] MEDS: HydrALAZINE HCL 20 MG/ML VIAL IV PRN ×2 (20:27→23:41)
--- NOTE | 2019-06-25 20:27 | Hospitalist Consultation ---
Date of Consultation June 25, 2019 Assessment & Plan (1) HTN (hypertension): Continue with home medications -lisinopril and metoprolol. IV hydralazine as needed basis for uncontrolled hypertension. Present on Admission?: Yes (2) Encounter for pre-operative examination: (3) Lumbar back pain with radiculopathy affecting left lower extremity: (4) CAD (coronary artery disease): (5) Paroxysmal A-fib: History of Present Illness Reason for Consultation: Hypertension Attending Physician: Harvey Chong DO History of Present Illness The patient is 58-year-old -[place] male who is going for back surgery tomorrow. Hospitalist consultation was requested for management of hypertension. He takes metoprolol and lisinopril at home. He took his medications today. He has history of paroxysmal atrial fibrillation and his powderman is from [place]. He denies any headache. No chest pain or shortness of breath. Allergies Allergy/AdvReac Type Severity Reaction Status Date / Time ciprofloxacin [From Cipro] Allergy Unknown Hives Verified 05/29/19 11:01 morphine AdvReac Unknown GI UPSET Verified 05/29/19 11:01 Home Medications Home Medications Medication Instructions Recorded Confirmed Type tramadol 50 mg PO Q6H PRN 05/20/19 05/29/19 History oxycodone 5 mg PO Q4H PRN #30 tab 05/30/19 Rx tramadol 50 mg PO Q4H PRN #30 tab 05/30/19 Rx gabapentin 300 mg PO TID #90 cap 05/31/19 Rx lisinopril 10 mg PO QAM 30 Days #30 tab 06/02/19 Rx metoprolol succinate 50 mg PO QAM 30 Days #30 tab 06/02/19 Rx Patient History Medical History CAD (coronary artery disease) (Chronic) Paroxysmal A-fib (Chronic) Chronic back pain (Chronic) B/L LE radiculopathy 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 Hx of renal cell cancer (Chronic) s/p right partial nephrectomy (no chemo or radiation) Obesity (Chronic) HTN (hypertension) (Chronic) no meds Surgical History History of cardiac cath (Chronic) non obstructive CAD Hx of partial nephrectomy (Chronic) RIGHT History of right hip replacement (Chronic) History of arthroscopic knee surgery (Chronic) History of back surgery (Chronic) X3, last back surgery 05/2019 Hx of eye surgery (Chronic) RIGHT Social History Preferred Language: Kiswahili Communication Ability: Effective Population Health Manager Required: No Beliefs That Will Affect Care: None Current Living Situation: Significant Other Other Information That Helps Us Care for You: No Feels Safe at Home: Yes Safety Concerns: Feels Safe At This Time Smoking Status: Current every day smoker Tobacco Type: cigarettes ; Cigarettes Per Day: 10 cigarettes x 30 years ; Second Hand Exposure: Yes (DAILY) ; Hx Alcohol Use: Yes Alcohol Intake Frequency: Rarely Hx Substance Use: No Review of Systems Review of Systems: All systems reviewed & are unremarkable except as noted in HPI & below Physical Exam Physical Exam: GENERAL : No acute distress EYES: No icterus, gaze conjugate NOSE: No evidence of epistaxis MOUTH: No lesions or candidiasis, mucosa moist NECK: Supple LUNGS: CTA B/L, no wheezes, rales or rhonchi HEART: Regular, rate controlled ABDOMEN: Soft, NT, ND, BS Present EXTREMITIES: No LE edema, pedal pulses intact NEURO: A&OX3 Results & Data Vital Signs (Past 12 Hours) Vital Signs Temp Pulse Resp BP BP Pulse Ox 06/25/19 19:10 167/103 H 06/25/19 17:03 180/105 H 06/25/19 16:00 97.5 F L 61 20 185/105 H 98 Laboratory Results 06/25/19 06/25/19 06/25/19 Range/Units 17:37 16:35 16:35 WBC 5.41 (4.8-10.8) K/uL RBC 4.46 L (4.7-6.1) M/uL Hgb 12.1 L (14.0-18.0) g/dL Hct 37.1 L (42-52) % MCV 83.2 (80-100) fL MCH 27.1 (25-34) pg MCHC 32.6 (32-36) g/dL RDW Std Deviation 45.3 (36.4-46.3) fL RDW Coeff of Edie 15.0 H (11.5-14.5) % Plt Count 315 (130-400) K/uL MPV 9.4 (7.4-10.4) fL Immature Gran % (Auto) 0.6 % Neut % (Auto) 61.3 % Lymph % (Auto) 28.5 % Graham % (Auto) 7.6 % Eos % (Auto) 1.8 % Baso % (Auto) 0.2 % Immature Gran # (Auto) 0.03 H (0.00-0.02) K/uL Neut # (Auto) 3.32 (1.4-6.5) K/uL Lymph # (Auto) 1.54 (1.2-3.4) K/uL Graham # (Auto) 0.41 (0.11-0.59) K/uL Eos # (Auto) 0.10 (0-0.5) K/uL Baso # (Auto) 0.01 (0-0.2) K/uL Sodium 141 (136-145) mmol/L Potassium 4.1 (3.5-5.1) mmol/L Chloride 111 H (98-107) mmol/L Carbon Dioxide 25 (21-32) mmol/L Anion Gap 5.0 (3-11) BUN 21 H (7-18) mg/dl Creatinine 1.10 (0.6-1.4) mg/dl Est Cr Clr Drug Dosing Not Reportable Est GFR ( Amer) 85.9 Est GFR (Non-Af Amer) 74.1 BUN/Creatinine Ratio 19.2 (10-20) Glucose 87 (70-99) mg/dl Calcium 8.5 (8.5-10.1) mg/dl Total Bilirubin 0.3 (0.2-1) mg/dl AST 29 (15-37) U/L ALT 77 (12-78) U/L Alkaline Phosphatase 96 (45-117) U/L Total Protein 7.1 (6.4-8.2) gm/dl Albumin 2.8 L (3.4-5.0) gm/dl Globulin 4.3 H (2.5-4.0) gm/dl Albumin/Globulin Ratio 0.7 L (0.9-2) Blood Type B Positive Antibody Screen NEGATIVE 06/25/19 16:35 06/25/19 16:35 PG Care Time/CCT Total # of Minutes Spent Total Time Spent with Patient: Total time spent is greater than 50% in coordina tion of care (as documented) at patient's floor/unit and/or counseling patient:
[2019-06-25] MEDS: GABAPENTIN 300 MG CAP PO SCH (21:11)
[2019-06-26] MEDS: LACTATED RINGER'S 1,000 ML IV SCH ×3 (02:16→17:20)
[2019-06-26] MEDS ORDERED: CEFAZOLIN 2000MG 2,000 MG/15 ML SYR IV SCH (06:00)
[2019-06-26] MEDS: GABAPENTIN 300 MG CAP PO SCH ×3 (07:37→20:00)
[2019-06-26] MEDS: METOPROLOL SUCC 50MG EXT REL TAB PO SCH (07:37)
[2019-06-26] MEDS: HydrALAZINE HCL 20 MG/ML VIAL IV PRN (07:39)
[2019-06-26] MEDS ORDERED: INFLUENZA VIRUS QUAD VACCINE 0.5 ML SYR IM ONE (08:00)
[2019-06-26] MEDS ORDERED: INFLUENZA ADMINISTRATION CHARGE ONE (08:00)
[2019-06-26] MEDS: lisinopriL 10 MG TAB PO SCH (12:32)
[2019-06-26] MEDS ORDERED: MIDAZOLAM HCL 1 MG/ML 2ML VIAL ONE (14:12)
[2019-06-26] MEDS ORDERED: fentaNYL citrate 100 MCG/2 ML VIAL ONE (14:12)
[2019-06-26] MEDS ORDERED: HYDROmorphone INJ 2 MG/ML SYR/VIAL ONE (14:12)
--- NOTE | 2019-06-26 14:25 | History & Physical Bridge Note ---
Date of Service June 26, 2019 History & Physical Bridge Note I have examined the patient, reviewed the History & Physical and in the interval since the performance of the History & Physical I have noted the following changes of clinical significance: no changes noted
[2019-06-26] MEDS ORDERED: ATROPINE SULFATE 0.1 MG/ML 10ML SYR IV PRN (14:41)
[2019-06-26] MEDS ORDERED: PROMETHAZINE HCL 6.25 MG in SODIUM CHLORIDE 0.9% 50 ML IV PRN (14:41)
[2019-06-26] MEDS ORDERED: ePHEDrine sulfate 50 MG/ML AMP IV PRN (14:41)
[2019-06-26] MEDS ORDERED: ONDANSETRON INJ 2 MG/ML 2 ML VIAL IV PRN ×2 (14:41→17:16)
[2019-06-26] MEDS ORDERED: fentaNYL citrate 100 MCG/2 ML VIAL IV PRN (14:41)
[2019-06-26] MEDS ORDERED: BACITRACIN INJ 50,000 UNIT VIAL ONE (14:45)
[2019-06-26] MEDS ORDERED: BUPIVACAINE/EPINEPHRINE 0.5% MPF 1:200,000 30 ML VIAL ONE (14:45)
[2019-06-26] MEDS ORDERED: GENTAMICIN SULFATE 40 MG/ML 2 ML VIAL ONE (15:11)
[2019-06-26] MEDS ORDERED: VANCOMYCIN HCL 1000MG/20ML VIAL ONE (15:12)
[2019-06-26] MEDS ORDERED: CEFAZOLIN 250 MG/ML 1 GM VIAL ONE (15:22)
[2019-06-26] MEDS ORDERED: ONDANSETRON INJ 2 MG/ML 2 ML VIAL ONE (15:36)
[2019-06-26] MEDS ORDERED: PROPOFOL IV EMULSION 10 MG/ML 20 ML VIAL IV ONE ×2 (15:36→16:21)
[2019-06-26] MEDS ORDERED: SUCCINYLCHOLINE CHLORIDE 20 MG/ML 10 ML VIAL ONE (15:36)
[2019-06-26] MEDS ORDERED: LIDOCAINE HCL 2% 2 ML VIAL/AMP(20MG/ML) INFIL ONE (15:36)
[2019-06-26] MEDS ORDERED: GLYCOPYRROLATE 0.2 MG/ML VIAL ONE (15:36)
[2019-06-26] MEDS ORDERED: NEOSTIGMINE METHYLSULFATE 1 MG/ML 10ML VIAL ONE (15:36)
[2019-06-26] MEDS ORDERED: PHENYLEPHRINE HCL 10 MG/ML VIAL ONE (15:36)
[2019-06-26] MEDS ORDERED: DEXAMETHASONE SOD INJ 4 MG/ML VIAL ONE (15:36)
[2019-06-26] MEDS ORDERED: ePHEDrine sulfate 50 MG/ML AMP ONE (15:36)
[2019-06-26] MEDS ORDERED: SUGAMMADEX SODIUM 200 MG/2 ML VIAL IV ONE (15:39)
--- NOTE | 2019-06-26 15:44 | Operative Report ---
Post Operative Report Pre & Post Diagnosis Operation Date: 06/26/19 07:00 Pre-Op Diagnosis: SEVERE LUMBAR SPINE PAIN/HARDWARE FAILURE Post-Op Diagnosis: SEVERE LUMBAR SPINE PAIN/HARDWARE FAILURE Lumbar epidural seroma I identified the patient and participated in the time-out.: Yes Procedure Operation Date: 06/26/19 07:00 Actual Procedures #1 evacuation of lumbar epidural seroma. #2 removal of L5-S1 interbody cage. #3 placement of stimulant beads Surgeon Harvey Chong DO Asphalt Roller Operator Maribell Can Estimated Blood Loss 50 Findings Consistent with Post-Op Diagnosis Specimens None Indications This is a 58-year-old male well-known to me that presents to the office with worsening back and leg pain. Imaging suggested loosening of his interbody cage and posterior migration. In light of his presentation and pain would like to undergo the above-mentioned procedure. Description of Procedure Patient was met with preoperatively case discussed all questions addressed per depart patient was taken to the operative suite underwent intubation placed in the prone position on the Vishal table on top of the Vimal frame. All bony prominences well-padded eyes inspected to ensure no external pressure placed upon the peer at this point the lumbar spine was prepped and draped in a sterile fashion. Sharp dissection with the assistance of Bovie cautery was performed down to and exposing the fascial layer. This was incised and a large seroma was noted. Cultures were obtained though no evidence of gross infection noted. I then reexposed the transforaminal space at L5-S1 the left. Was able to locate the peek cage noted it to be loose. I elected to remove the cage and not to insert a new one. I then was irrigated the incision placed another 5 cc of stimulant beads impregnated with vancomycin gentamicin. A 15 drain was inserted. The incision was then closed with 1 Vicryl fascia 2-0 Vicryl subtenons in 4 Monocryl for final skin closure. Steri-Strip sterile dressing placed. Patient will continue to PACU stable condition. Please note Maribell Can was present throughout the entire procedure involved the patient positioning complex portions of the surgery and final skin closure. I attest to the content of the Intraoperative Record and any orders documented therein. Any exceptions are noted below.
--- NOTE | 2019-06-26 15:52 | Fluoroscopy Report ---
FL lumbar spine 2-3V CLINICAL HISTORY: LUMBAR REVISION COMPARISON STUDY: 05/29/2019 FLUOROSCOPY TIME: 5 seconds. NUMBER OF FLUOROSCOPIC IMAGES: 1 FINDINGS: A single intraoperative fluoroscopic lateral view is provided for interpretation. This imag e demonstrates evidence of L4-S1 posterior spinal fusion. There is a metallic probe projected over L5 -S1 disc implant IMPRESSION: Single intraoperative fluoroscopic spot image as described above. Electronically signed by: Jesus Tamez M.D. 06/26/2019 3:51 PM
--- NOTE | 2019-06-26 17:04 | Anesthesiology Progress Note ---
Date of Service June 26, 2019 Anesthesia Post Procedure Vital Signs Vital Signs: Temp Pulse Pulse Resp BP Pulse Ox 06/26/19 16:39 36.2 C L 59 L 18 111/58 L 99 06/26/19 16:30 36.2 C L 68 18 125/58 L 100 06/26/19 16:20 54 L 18 117/50 L 100 06/26/19 16:11 36.0 C L 56 L 18 144/42 H 94 06/26/19 14:06 36.9 C 65 16 189/90 H 98 06/26/19 07:34 36.7 C 68 16 166/74 H 97 06/26/19 06:35 37 C 74 16 186/76 H 90 06/26/19 03:15 164/71 H 06/26/19 00:04 79 18 147/71 H 95 06/25/19 23:20 174/76 H 06/25/19 23:08 36.5 C 72 16 210/83 H 97 06/25/19 21:08 73 184/86 H 06/25/19 20:25 65 186/109 H 06/25/19 19:10 167/103 H Pain Intensity Left Leg: Pain Intensity: 8 Transfer of Care Handoff Completed per policy Notes Mental Status: alert / awake / arousable and participated in evaluation Patient Amnestic to Procedure: Yes Nausea / Vomiting: adequately controlled Pain: adequately controlled Airway Patency, RR, SpO2: stable & adequate BP & HR: stable & adequate Hydration State: stable & adequate Anesthetic Complications: no major complications apparent
[2019-06-26] MEDS ORDERED: ACETAMINOPHEN 500 MG TAB PO PRN (17:16)
[2019-06-26] MEDS ORDERED: SOD PHOSPHATE/SOD BIPHOSPHATE ENEMA 132 ML BTL PR PRN (17:16)
[2019-06-26] MEDS ORDERED: NALOXONE HCL 0.4 MG/1 ML VIAL/CARP IV PRN (17:16)
[2019-06-26] MEDS ORDERED: ONDANSETRON 4 MG TAB PO PRN (17:16)
[2019-06-26] MEDS ORDERED: LORazepam 0.5 MG/1 ML VIAL IV PRN (17:16)
[2019-06-26] MEDS ORDERED: METOCLOPRAMIDE HCL INJ 5 MG/ML 2 ML VIAL IV PRN (17:16)
[2019-06-26] MEDS ORDERED: TRAMADOL HCL 50 MG TABLET PO PRN (17:16)
[2019-06-26] MEDS ORDERED: HYDROmorphone INJ 1 MG/ML SYRINGE IV PRN (17:16)
[2019-06-26] MEDS ORDERED: HYDROmorphone INJ 0.5 MG/0.5 ML SYR IV PRN (17:16)
[2019-06-26] MEDS ORDERED: bisacodyL 10 MG SUPP PR PRN (17:16)
[2019-06-26] MEDS ORDERED: PROMETHAZINE HCL 12.5 MG in SODIUM CHLORIDE 0.9% 50 ML IV PRN (17:16)
[2019-06-26] MEDS ORDERED: ACETAMINOPHEN 1,000 MG/100 ML VIAL IV PRN (17:16)
[2019-06-26] MEDS ORDERED: ALUMINUM/MAGNESIUM SUSP 30 ML UDC PO PRN (17:16)
[2019-06-26] MEDS ORDERED: MAGNESIUM HYDROXIDE SUSP 30 ML UDC PO PRN (17:16)
[2019-06-26] MEDS ORDERED: LORazepam 0.5 MG TAB PO PRN (17:16)
[2019-06-26] MEDS ORDERED: DO NOT ADMINISTER FLU VACCINE PRN (17:16)
[2019-06-26] MEDS ORDERED: DO NOT ADMINISTER PNEUMOCOCCAL VACCINE PRN (17:16)
[2019-06-26] MEDS ORDERED: FAMOTIDINE 20 MG TAB PO PRN (17:16)
[2019-06-26] MEDS: KETOROLAC 30 MG/ML VIAL IV SCH (18:24)
[2019-06-26] MEDS: OXYCODONE HCL IR 5 MG TAB (IMMEDIATE RELEASE) PO PRN (20:00)
[2019-06-26] MEDS: DOCUSATE SODIUM/SENNA 50/8.6MG TAB PO SCH (20:00)
[2019-06-26] MEDS: CEFAZOLIN 2000MG 2,000 MG/15 ML SYR IV SCH (22:18)
[2019-06-27] MEDS: OXYCODONE HCL IR 5 MG TAB (IMMEDIATE RELEASE) PO PRN ×5 (00:06→23:29)
[2019-06-27] MEDS: KETOROLAC 30 MG/ML VIAL IV SCH ×3 (00:08→12:13)
[2019-06-27] MEDS: LACTATED RINGER'S 1,000 ML IV SCH (00:10)
[2019-06-27 05:29] LABS: Basophils # (auto) 0.01 K/uL (0-0.2); Basophils % (auto) 0.1 %; Eosinophils % (auto) 1.4 %; Hematocrit (blood only) 34.7 % (42-52); Hemoglobin 11.2 g/dL (14.0-18.0); Immature Granulocytes # (auto) 0.03 K/uL (0.00-0.02); Immature Granulocytes % (auto) 0.4 %; Lymphocytes # (auto) 1.69 K/uL (1.2-3.4); Lymphocytes % (auto) 24.1 %; Mean Corpuscular Hemoglobin 26.7 pg (25-34); Mean Corpuscular Hgb Conc 32.3 g/dL (32-36); Mean Corpuscular Volume 82.6 fL (80-100); Mean Platelet Volume 9.6 fL (7.4-10.4); Monocytes # (auto) 0.66 K/uL (0.11-0.59); Monocytes % (auto) 9.4 %; Neutrophils # (auto) 4.53 K/uL (1.4-6.5); Neutrophils % (auto) 64.6 %; Platelet Count 328 K/uL (130-400); White Blood Count 7.02 K/uL (4.8-10.8)
[2019-06-27 06:02] LABS: Calcium 8.4 mg/dl (8.5-10.1); Creatinine Clr Calc Pharmacy 70.4 ml/min; Est GFR (African American) 58.1; Est GFR (Non-African American) 50.1; Potassium 3.5 mmol/L (3.5-5.1)
[2019-06-27] MEDS: POLYETHYLENE (MIRALAX) 17 GM PACK PO SCH ×4 (06:06→23:31)
[2019-06-27] MEDS: CEFAZOLIN 2000MG 2,000 MG/15 ML SYR IV SCH (06:07)
[2019-06-27] MEDS: METOPROLOL SUCC 50MG EXT REL TAB PO SCH (06:15)
[2019-06-27] MEDS: lisinopriL 10 MG TAB PO SCH (06:15)
[2019-06-27 06:18] LABS: BUN Creatinine Ratio 14.3 (10-20)
[2019-06-27] MEDS ORDERED: HydrALAZINE HCL 20 MG/ML VIAL IV PRN (07:10)
--- NOTE | 2019-06-27 08:11 | Orthopedic Progress Note ---
Date of Service June 27, 2019 Assessment & Plan (1) Lumbar back pain with radiculopathy affecting left lower extremity: At this time his cultures were negative. Symptoms are markedly improved. Will initiate physical therapy therapy today. He will maintain his AMENA drain. Hopefully discharge home this weekend. Present on Admission?: Yes Subjective Patient's back and leg symptoms are markedly improved. Physical Exam Physical Exam: Patient is good strength testing appears comfortable. Results & Data Vital Signs (Past 12 Hours) Vital Signs Temp Pulse Resp BP Pulse Ox 06/27/19 06:50 81 187/80 H 06/27/19 06:09 188/99 H 06/27/19 04:00 36.8 C 76 16 174/76 H 98 06/26/19 23:50 166/64 H 06/26/19 23:00 37.0 C 81 16 170/76 H 92
--- NOTE | 2019-06-27 08:25 | Anesthesiology Progress Note ---
Date of Service June 27, 2019 Anesthesia Post Procedure Vital Signs Vital Signs: Temp Pulse Pulse Resp BP BP Pulse Ox 06/27/19 08:00 37.0 C 60 18 166/98 H 96 06/27/19 06:50 81 187/80 H 06/27/19 06:09 188/99 H 06/27/19 04:00 36.8 C 76 16 174/76 H 98 06/26/19 23:50 166/64 H 06/26/19 23:00 37.0 C 81 16 170/76 H 92 06/26/19 20:00 37.1 C 75 16 170/62 H 96 06/26/19 19:18 36.8 C 65 16 155/61 H 96 06/26/19 18:00 37.2 C 64 16 154/79 H 92 06/26/19 17:30 37.5 C 73 16 136/77 98 06/26/19 17:00 37 C 63 20 162/83 H 95 06/26/19 16:39 36.2 C L 59 L 18 111/58 L 99 06/26/19 16:30 36.2 C L 68 18 125/58 L 100 06/26/19 16:20 54 L 18 117/50 L 100 06/26/19 16:11 36.0 C L 56 L 18 144/42 H 94 06/26/19 14:06 36.9 C 65 16 189/90 H 98 Pain Intensity Left Leg: Pain Intensity: 6 Notes Mental Status: alert / awake / arousable and participated in evaluation Patient Amnestic to Procedure: Yes Nausea / Vomiting: adequately controlled Pain: adequately controlled Airway Patency, RR, SpO2: stable & adequate BP & HR: stable & adequate Hydration State: stable & adequate Anesthetic Complications: no major complications apparent and Pt Satisfied with anesthetic care
[2019-06-27] MEDS: GABAPENTIN 300 MG CAP PO SCH ×3 (08:54→20:58)
[2019-06-27] MEDS ORDERED: AMLODIPINE BESYLATE 5 MG TAB PO SCH (09:00)
--- NOTE | 2019-06-27 15:07 | Hospitalist Progress Note ---
Date of Service June 27, 2019 Assessment & Plan (1) Lumbar back pain with radiculopathy affecting left lower extremity: S/p lumbar surgery with Dr. Chong on 06/26. - Post-operative care per surgery - Continue gabapentin (2) HTN (hypertension): Reports his home BP is usually 160/70, and in the hospital it runs higher. - Continue with home medications -lisinopril and metoprolol. - Started amlodipine on 06/27, but patient did not want to continue it in favor of following up with his PCP. - IV hydralazine PRN (3) Paroxysmal A-fib: Presently rate-controlled. No EKG in the chart; however, not sure we really need one. Prior EKG from 02/2019 shows he was in sinus at that time. - No inpatient needs unless he goes into afib with RVR (4) DVT prophylaxis: Per primary team Subjective No major pain today in the back. No symptoms from his HTN. Reports no fevers/chills, chest pain, shortness of breath, abdominal pain, nausea, or vomiting. Physical Exam Constitutional: WD/WN, vitals as above Eyes: EOM intact bilaterally; no conjunctival abnormality ENMT: external ear and nose normal, oropharynx normal Neck: trachea midline, no thyromegaly normal visual inspection Respiratory: normal respiratory effort, lungs clear to auscultation no respiratory distress Cardiovascular: RRR, no murmur, no edema Gastrointestinal (Abdomen): Inspection/Auscultation: abdomen normal to inspection; abdomen not distended Musculoskeletal: no cyanosis or clubbing, extremities motor strength 5/5 Skin: no rashes, warm and dry Neurologic: moves all extremities and awake Psychiatric: Orientation: alert, oriented to person and cooperative Results & Data Vital Signs (Past 12 Hours) Vital Signs Temp Pulse Resp BP Pulse Ox 06/27/19 11:06 37.0 C 64 18 164/82 H 93 06/27/19 08:00 37.0 C 60 18 166/98 H 96 06/27/19 06:50 81 187/80 H 06/27/19 06:09 188/99 H 06/27/19 04:00 36.8 C 76 16 174/76 H 98 PG Care Time/CCT Total # of Minutes Spent Total Time Spent with Patient: Total time spent is greater than 50% in coordination of care (as documented) at patient's floor/unit and/or counseling patient:
[2019-06-27] MEDS: DOCUSATE SODIUM/SENNA 50/8.6MG TAB PO SCH (20:58)
[2019-06-28] MEDS: POLYETHYLENE (MIRALAX) 17 GM PACK PO SCH ×3 (05:51→17:35)
[2019-06-28 06:03] LABS: BUN Creatinine Ratio 17.3 (10-20); Calcium 8.4 mg/dl (8.5-10.1); Creatinine Clr Calc Pharmacy 88.5 ml/min; Est GFR (African American) 76.6; Est GFR (Non-African American) 66.1; Potassium 4.1 mmol/L (3.5-5.1)
[2019-06-28] MEDS: OXYCODONE HCL IR 5 MG TAB (IMMEDIATE RELEASE) PO PRN ×4 (08:29→22:32)
[2019-06-28] MEDS: lisinopriL 10 MG TAB PO SCH (08:30)
[2019-06-28] MEDS: GABAPENTIN 300 MG CAP PO SCH ×3 (08:30→20:10)
[2019-06-28] MEDS: METOPROLOL SUCC 50MG EXT REL TAB PO SCH (08:30)
--- NOTE | 2019-06-28 09:36 | Orthopedic Progress Note ---
Date of Service June 28, 2019 Assessment & Plan (1) Lumbar back pain with radiculopathy affecting left lower extremity: At this time we will maintain the AMENA drain change dressing as needed. Continue to monitor his progress. At this time his cultures are negative. Present on Admission?: Yes Subjective This time his pain seems to be well-controlled. He has some numbness in the left leg but no pain. Is been ambulating the halls. Physical Exam Physical Exam: On exam is good strength testing appears comfortable. Results & Data Vital Signs (Past 12 Hours) Vital Signs Temp Pulse Resp BP Pulse Ox 06/28/19 07:45 37.5 C 64 20 176/96 H 97 06/27/19 23:02 37.4 C 65 16 168/80 H 92
--- NOTE | 2019-06-28 12:24 | Hospitalist Progress Note ---
Date of Service June 28, 2019 Assessment & Plan (1) Lumbar back pain with radiculopathy affecting left lower extremity: S/p lumbar surgery with Dr. Chong on 06/26. - Post-operative care per surgery - Per patient, the AMENA drain is not draining properly; however, no indication of this in the orthopedic note. - Continue gabapentin (2) Cough: Reports new cough and subjective fevers/chills overnight. Lung sounds good. Low concern for pneumonia. - CXR (3) ODILON (acute kidney injury): Cr was up to 1.5 on 06/27 from his baseline of 1.1. - Down to 1.2 on 06/28; likely intra-operative fluid shifts. - Monitor (4) HTN (hypertension): Reports his home BP is usually 160/70, and in the hospital it runs higher. - Continue with home medications -lisinopril and metoprolol. - Started amlodipine on 06/27, but patient did not want to continue it in favor of following up with his PCP. Today, his BP is still 175/95, but he feels it is due to being in the hospital. Continue home dosing. - IV hydralazine PRN (5) Paroxysmal A-fib: Presently rate-controlled. No EKG in the chart; however, not sure we really need one. Prior EKG from 02/2019 shows he was in sinus at that time. - No inpatient needs unless he goes into afib with RVR (6) DVT prophylaxis: Per primary team Subjective Not in great spirits today. He reports that overnight he had back pain, cough, and chills. This morning he reports that his left leg is numb. He has expressed some of these concerns to Dr. Chong as well, particularly the lower back and left leg numbness. Reports no chest pain, shortness of breath, abdominal pain, nausea, or vomiting. Physical Exam Constitutional: WD/WN, vitals as above Eyes: EOM intact bilaterally; no conjunctival abnormality ENMT: external ear and nose normal, oropharynx normal Neck: trachea midline, no thyromegaly normal visual inspection Respiratory: normal respiratory effort, lungs clear to auscultation no respiratory distress Cardiovascular: RRR, no murmur, no edema Gastrointestinal (Abdomen): Inspection/Auscultation: abdomen normal to inspection; abdomen not distended Musculoskeletal: no cyanosis or clubbing, extremities motor strength 5/5 Skin: no rashes, warm and dry Neurologic: moves all extremities and awake Psychiatric: Orientation: alert, oriented to person and cooperative Results & Data Vital Signs (Past 12 Hours) Vital Signs Temp Pulse Resp BP Pulse Ox 06/28/19 07:45 37.5 C 64 20 176/96 H 97 PG Care Time/CCT Total # of Minutes Spent Total Time Spent with Patient: Total time spent is greater than 50% in coordination of care (as documented) at patient's floor/unit and/or counseling patient:
--- NOTE | 2019-06-28 12:54 | XRay Report ---
XR chest 2V PA/lateral HISTORY: 58 years-old Male Cough, fever acute cough with fever COMPARISON: None available TECHNIQUE: PA and lateral views of the chest FINDINGS: There is mild asymmetric right hilar prominence. Cardiac silhouette is mildly enlarged. No pneumothor ax. Trace pleural effusions. Patchy ill-defined lingular opacities. No overt pulmonary edema. The bon es appear grossly intact. IMPRESSION: 1. Cardiomegaly without overt pulmonary edema. 2. Linear lingular opacities favor atelectasis. 3. Mild asymmetric right hilar prominence. Correlate with prior imaging. 4. Trace pleural effusions. The above report was generated using voice recognition software. It may contain grammatical, syntax o r spelling errors. Electronically signed by: Martinez Jenkins M.D. 06/28/2019 12:53 PM
[2019-06-28] MEDS: DOCUSATE SODIUM/SENNA 50/8.6MG TAB PO SCH (20:11)
[2019-06-29] MEDS: POLYETHYLENE (MIRALAX) 17 GM PACK PO SCH (01:02)
[2019-06-29] MEDS: OXYCODONE HCL IR 5 MG TAB (IMMEDIATE RELEASE) PO PRN ×4 (02:54→17:31)
--- NOTE | 2019-06-29 08:37 | Orthopedic Progress Note ---
Date of Service June 29, 2019 Assessment & Plan (1) Lumbar back pain with radiculopathy affecting left lower extremity: We will continue with therapy today. DC his drain today most likely discharge home tomorrow. Cultures remain negative. Present on Admission?: Yes Subjective Back pain controlled left leg symptoms steadily improving. Physical Exam Physical Exam: Patient has good strength testing. Appears comfortable. Results & Data Vital Signs (Past 12 Hours) Vital Signs Temp Pulse Pulse Resp BP Pulse Ox 06/29/19 06:50 37.1 C 60 18 165/90 H 98 06/29/19 00:32 59 L 171/84 H 06/28/19 23:52 37.1 C 62 16 171/101 H 99
[2019-06-29] MEDS: GABAPENTIN 300 MG CAP PO SCH ×3 (08:44→20:12)
[2019-06-29] MEDS: lisinopriL 10 MG TAB PO SCH (08:45)
[2019-06-29] MEDS: METOPROLOL SUCC 50MG EXT REL TAB PO SCH (08:45)
--- NOTE | 2019-06-29 14:53 | History & Physical Bridge Note ---
Date of Service June 29, 2019 History & Physical Bridge Note Given medical stability, Hospital Medicine team will sign off. Please re-consult with any questions or concerns. Thank you for letting us assist in the care of this patient!
[2019-06-29] MEDS: DOCUSATE SODIUM/SENNA 50/8.6MG TAB PO SCH (20:13)
[2019-06-30] VITALS: O2SAT 98
[2019-06-30] MEDS: OXYCODONE HCL IR 5 MG TAB (IMMEDIATE RELEASE) PO PRN ×3 (03:09→12:31)
[2019-06-30 06:50] VITALS: PULSE 62; TEMP 98.8
[2019-06-30] MEDS: GABAPENTIN 300 MG CAP PO SCH ×2 (08:55→12:59)
[2019-06-30] MEDS: lisinopriL 10 MG TAB PO SCH (08:56)
[2019-06-30] MEDS: METOPROLOL SUCC 50MG EXT REL TAB PO SCH (08:56)
--- NOTE | 2019-06-30 13:04 | Discharge Summary ---
Date of Service June 30, 2019 Admission HPI Per Admitting Provider 58 year old status post lumbar revison fusion with worsening leg pain and weakness. Imaging demonstrates posterior migration of interbody cage Principal Diagnosis Back and left leg pain with migration of hardware Discharge Data Allergies Allergy/AdvReac Type Severity Reaction Status Date / Time ciprofloxacin [From Cipro] Allergy Unknown Hives Verified 05/29/19 11:01 morphine AdvReac Unknown GI UPSET Verified 05/29/19 11:01 Consultations 06/25/19 16:00 Consult Anesthesiology Routine 06/25/19 19:25 Consult Hospitalist Routine 06/26/19 17:16 Consult Case Management - Discharge Planning Routine Consult Hospitalist Routine Procedures Performed Operation Date: 06/26/19 07:00 Actual Procedures p L5-S1 Revision of Lumbar Fusion(Not Applicable) - Harvey Chong DO Ordered Studies 06/26/19 13:00 FL fluoroscopy <1hr Routine FL lumbar spine 2-3V Routine Hospital Course (1) Lumbar back pain with radiculopathy affecting left lower extremity: Patient underwent revision fusion L5-S1 tolerated as well as taken orthopedic floor postoperatively. Cultures were also obtained and negative throughout her stay. Postop day #1 his leg symptoms improved back pain controlled. He progressed appropriately throughout his hospital stay AMENA drain decreasing probably. Subsequent discharge home. Discharge orders instructions from the chart for further review. Total Time Total Time Spent Total Time Spent (In Minutes): 20 minutes Discharge Plan Discharge Items Patient Disposition: Home - Self-Care Reason For Visit: SEVERE LUMBAR SPINE PAIN/HARDWARE FAILURE Discharge Diagnosis: Lumbar seroma with radiculopathy Activity: Per Instructions section Non-emergency contact: Primary Care Provider Call non-emergency contact if: you have any medication questions Follow-up/Referrals: PCP,NO [Primary Care Provider] - Diet: Regular Addtl Attending Provider Instructions: ACTIVITY RECOMMENDATIONS: SELF CARE INSTRUCTIONS AFTER THORACIC/LUMBAR FUSIONS 1. You may walk to your tolerance. It is good exercise for your legs and back. Expect some back and intermittent leg aches and pains. 2. You may perform "counter-top" level activities (make a sandwich, melissa with a project, etc.). 3. No bending or lifting of more than 10 pounds or back twisting of any nature (roll like a log when turning in bed). 4. You may ride in a car for 20-30 minutes at a time. No driving until after your first visit with your doctor. 5. Frequent changes of position and restricting sitting to 30 minutes at a time will help limit the amount of back spasms and stiffness you may experience. 6. You may discontinue the use of ambulatory aids (cane, crutches, etc.) once your strength and confidence allow. 7. You may plumbing and heating mechanic the shower and let water strike your incision when you arrive home at least once daily. Do not take a tub bath, sit in a hot tub or go into a swimming pool until after your first recheck in the office. SPECIAL CARE INSTRUCTIONS: VERY IMPORTANT TO READ AND REVIEW A. Your surgical incision has been closed with a cosmetic suture under the skin that will dissolve in about 6 weeks. In 14 days, you can use a pair of clean scissors and cut the suture that is left outside of the skin at the ends of your incision. 1. The small skin tapes can be removed 7 days after surgery if they have not fallen off by that point. 2. You may keep the wound open to air as much as possible to promote healing after post-op day number 5 unless told otherwise by your doctor. 3. If you think the wound looks like it is becoming infected (redness or worsening drainage) and/or you are experiencing fever, chill or worsening back pain and muscle spasms, contact the office so that we may evaluate you as soon as possible. B. Complications are uncommon, but please contact us if you have any signs or symptoms of: 1. wound infection (fever higher than 102.5 degrees F, redness, separation of wound, drainage, or increasing pain from the incision) 2. blood clots in legs (pain, swelling, redness and warmth in legs) 3. urinary tract infection (fever higher than 102.5 degrees F, burning upon urination or increased frequency of urination) 4. nerve problems (inability to walk on your toes or heels, numbness, loss of bowel or bladder control) 5. any other symptoms that concern you C. Please call the office at if you have any concerns or questions about your operation or recovery. D. No smoking! Smoking drastically decreases the chance of a solid fusion. E. Do not take any anti-inflammatory medications (Indocin, Advil, Motrin, Aspirin, Naprosyn, etc.) as these may inhibit the chance of a solid fusion. Tylenol is okay to take for pain. MANAGING PAIN AFTER SPINAL SURGERY 1. Narcotic medication is intended for short-term use and will be provided for surgical pain. Surgical pain usually lasts for a period of 4-6 weeks. Narcotic medication includes Percocet, Vicodin, Darvocet, Tylenol #3 or Lortab. 2. Longer-term pain is more appropriately treated with non-narcotic medication such as Tylenol ES. 3. Muscle spasm is not appropriately treated with narcotics. Muscle relaxers such as Soma, Flexeril or Skelaxin can be used along with Tylenol ES. 4. Remember that we all live with some "aches and pains". This is not unusual or uncommon after an injury or as we get older. a. Back pain is expected and may include muscle spasms for 4 to 6 weeks after surgery. The pain should gradually improve. If the pain worsens for no apparent reason, please contact the office. b. Intermittent leg pain may also be experienced and should not be concerned about unless it worsens for no apparent reason. If so, please contact the office. 5. We will provide appropriate medication within the normal guidelines of their prescribed use. We will also be very cautious and aware of potential abuse and extended duration of patients' medication needs. a. Pain medications are for your comfort and to assist with sleep and rest so that the tissue can heal. They are not provided in order to return to normal activity and should not be used through the day. To do so or worsening pain at night can result from ongoing tissue damage and development of tolerance to the prescribed medicine. 6. Please allow 2-3 days to process refills. Prescriptions will not be mailed but must be picked up at the office. FOLLOW UP VISIT: Keep your scheduled follow-up appointment. Any questions, please call the office at . Pending Studies at Discharge: No Stand-Alone Forms: My [employer] Medications and DC Order Prescriptions: New oxycodone 5 mg Tablet 5 mg PO Q4H PRN (Reason: Pain, Severe) Qty: 30 RF: 0 Continued tramadol 50 mg Tablet 50 mg PO Q6H PRN (Reason: Pain) RF: 0 tramadol 50 mg Tablet 50 mg PO Q4H PRN (Reason: Pain, Moderate) Qty: 30 RF: 0 oxycodone 5 mg Tablet 5 mg PO Q4H PRN (Reason: Pain, Severe) Qty: 30 RF: 0 gabapentin 300 mg Capsule 300 mg PO TID Qty: 90 RF: 0 metoprolol succinate 50 mg Tablet Extended Release 24 Hr 50 mg PO QAM 30 Days Qty: 30 RF: 0 lisinopril 10 mg Tablet 10 mg PO QAM 30 Days Qty: 30 RF: 0 Discharge Orders: Discharge Order (Routine); Ordered 06/30/19 Ordered By: Harvey Chong Admission Data Admit Date/Time: 06/25/19 15:22 Attending Provider: Harvey Chong Admit Provider: Harvey Chong Primary Care Provider: PCP,NO Other Providers: Julián Shaver ; Radu English ; Damian Scherer ; Guanakito Fox
[2019-06-30 13:06] VITALS: BP 154/79
== END 2019-06-30 13:53 | disposition home health service (06) | DRG 516 ==
LOC: 3N 15:22 → 3E 06-26 17:07

== ENCOUNTER 2024-01-23 09:23 | Observation (INO) ==
--- NOTE | 2024-01-23 09:42 | Emergency Department Note ---
Impression & Plan Acute UTI, History of atrial fibrillation, History of kidney cancer ED Provider Note NAME: PATRICA WOOD Jr AGE: 63 SEX: M : 1960 ARRIVES VIA: Walk-In INFORMANT: Patient, ED PROVIDER(S): Jonathan Abreu MD CHIEF COMPLAINT: Outpatient referral, drug-resistant UTI MEDICAL DECISION MAKING: Patient presents due to concern for untreated prior pseudomonal UTI and the patient does have a history of a quinolone allergy and thus was referred for IV antibiotics. The patient had been at a different hospital within the last 24 hours in [place] but left AMA as they were unable to find a receiving facility. Blood work shows a normal white count hemoglobin and platelet count patient's kidney function with a creatinine 1.4. Patient's prior of 1.2 from 2019 not significantly changed. BSG 132 LFTs unremarkable. Urinalysis shows glucose but no signs of infection. Urine culture was added. I there was a fair amount of time between the patient's arrival and initially trying to obtain the outpatient records to review. Was unable to obtain the urine culture but was able to obtain the patient's most recent ED visit. Patient was ordered an IV dose of cefepime and I did speak with the on-call hospitalist service. Discussion w/ other healthcare providers: None Prior /Outside records reviewed: I reviewed a note from Dr. Rasheed Ocasio from January 22 from earlier this morning. The patient reportedly had presented to the same hospital with hematuria about 3 weeks prior. Patient reportedly was told in the first come in for antibiotics. Patient reportedly had positive urine cultures for Pseudomonas. Patient with history of A-fib on Eliquis. Differential diagnosis: Infection, dehydration, metabolic abnormality, hypo/hyperglycemia, electrolyte imbalance, anemia, UTI, pneumonia, thyroid dysfunction among others were considered. Diagnostics, as interpreted by me: ECG: Normal sinus rhythm, rate of 67, normal intervals, normal axis. T wave versions laterally and high lateral leads. No prior EKGs for comparison Cardiac monitoring: An order was placed for continuous cardiac monitoring. The monitor shows a rate of 72 with sinus rhythm. Patient was placed on pulse oximetry Medical decision rules: None Imaging studies: None HPI: Patient presents as referral due to concern for UTI not amenable to by mouth medications and was referred here for IV antibiotics. The patient relates that he was seen to [place] emergency department last evening because he had stephanie hematuria. The patient states he had blood work and CT scans completed. He was told that he had a thickened bladder. The patient denies any other urinary symptoms. He reports a prior history of prostate enlargement and states that he had a procedure to "shave it down." Patient has not seen urology and state patient denies any abdominal pain or flank pain no fevers or chills. s that symptoms began within the last month. Patient denies any dysuria no history of kidney stones. Patient does take Jardiance which she states increases his urinary frequency but this is unchanged. No low back pain. Patient was called with his results and was referred here. PAST MEDICAL HISTORY: History of renal cancer, A-fib PAST SURGICAL HISTORY: Partial nephrectomy SOCIAL HISTORY: See Below HOME MEDICATIONS: See Below ALLERGIES: See Below VITALS: See Below PHYSICAL EXAMINATION: GENERAL: NAD, non-toxic. EYE EXAM: Blindness noted of the right eye with hazy cornea. Left eye normal in appearance round and reactive. OROPHARYNX: Moist mucus membranes, grossly normal dentition. NECK: Trachea midline, no stridor. LUNGS: Clear to auscultation. Normal chest wall mechanics. HEART: NSR, no MRG. ABDOMEN: Abdomen soft, non-tender, no masses, no rebound or guarding. BACK: No CVA TTP. SKIN: No rashes and no bruising. UPPER EXTREMITIES: Upper extremities are grossly normal. LOWER EXTREMITIES: Grossly normal, no edema. NEURO EXAM: A&O x3, cranial nerves II-XII grossly intact, normal speech, moves all 4 extremities. 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 Hx of renal cell cancer (Chronic) s/p right partial nephrectomy (no chemo or radiation) Hx of partial nephrectomy (Chronic) RIGHT History of right hip replacement (Chronic) History of arthroscopic knee surgery (Chronic) History of back surgery (Chronic) X3, last back surgery 05/2019 Hx of eye surgery (Chronic) RIGHT Obesity (Chronic) HTN (hypertension) (Chronic) no meds Spinal stenosis, lumbar region with neurogenic claudication Encounter for pre-operative examination Family History Brother Kidney disease Social History (Updated 01/23/24 @ 16:26 by Jonathan Abreu MD) Smoking Status: Former smoker Cigarettes Per Day: 10 cigarettes x 30 years; Second Hand Exposure: Yes (DAILY); Do You Dip or Chew Tobacco: No; Hx Alcohol Use: Yes Hx Substance Use: No Preferred Language: Bengali Communication Ability: Effective Web Development Consultant Required: No Beliefs That Will Affect Care: None Current Living Situation: Significant Other Feels Safe at Home: Yes Assistive Devices: None Allergies Allergies Allergy/AdvReac Type Severity Reaction Status Date / Time ciprofloxacin [From Cipro] Allergy Unknown Hives Verified 01/23/24 11:45 morphine AdvReac Unknown GI UPSET Verified 01/23/24 11:45 Home Meds Home Medications Medication Instructions Recorded Confirmed amitriptyline 25 mg tablet 25 mg PO HS 01/23/24 01/23/24 apixaban 5 mg tablet (Eliquis) 5 mg PO BID 01/23/24 01/23/24 cyclobenzaprine 10 mg tablet 10 mg PO TID 01/23/24 01/23/24 empagliflozin 25 mg tablet 25 mg PO DAILY 01/23/24 01/23/24 (Jardiance) gabapentin 800 mg tablet 800 mg PO TID 01/23/24 01/23/24 metformin 1,000 mg tablet 1,000 mg PO BID 01/23/24 01/23/24 sildenafil 100 mg tablet 100 mg PO UD 01/23/24 01/23/24 sotalol 80 mg tablet 80 mg PO BID 01/23/24 01/23/24 trazodone 100 mg tablet 100 mg PO HS 01/23/24 01/23/24 Results & Data (ED) Vital Signs Vital Signs - 24 hr 01/23/24 09:27 01/23/24 10:14 01/23/24 10:17 Temperature 35.9 C L Temperature Source Temporal Artery Scan Pulse Rate 78 67 67 Pulse Rate from SpO2 Sensor 67 Respiratory Rate 15 19 Blood Pressure 199/135 H Blood Pressure Mean 156 Pulse Oximetry 96 95 Oxygen Delivery Method Room Air Sepsis Recent Fever Within 48 Hours No Sepsis New/Unexplained Change in Mental Status No Sepsis Action Taken by Nursing No Action Required 01/23/24 10:30 01/23/24 10:30 01/23/24 11:00 Temperature Temperature Source Pulse Rate 66 66 Pulse Rate from SpO2 Sensor 66 66 Respiratory Rate 19 17 Blood Pressure 190/91 H Blood Pressure Mean 106 Pulse Oximetry 94 96 Oxygen Delivery Method Sepsis Recent Fever Within 48 Hours Sepsis New/Unexplained Change in Mental Status Sepsis Action Taken by Nursing 01/23/24 11:01 01/23/24 11:01 01/23/24 11:30 Temperature Temperature Source Pulse Rate 67 Pulse Rate from SpO2 Sensor 67 Respiratory Rate 19 Blood Pressure 166/97 H 160/75 H Blood Pressure Mean 134 90 Pulse Oximetry 95 Oxygen Delivery Method Sepsis Recent Fever Within 48 Hours Sepsis New/Unexplained Change in Mental Status Sepsis Action Taken by Nursing 01/23/24 11:30 01/23/24 12:00 01/23/24 12:00 Temperature Temperature Source Pulse Rate 69 65 Pulse Rate from SpO2 Sensor 69 65 Respiratory Rate 25 H 17 Blood Pressure 167/96 H Blood Pressure Mean 119 Pulse Oximetry 96 97 Oxygen Delivery Method Sepsis Recent Fever Within 48 Hours Sepsis New/Unexplained Change in Mental Status Sepsis Action Taken by Nursing 01/23/24 12:30 01/23/24 12:30 01/23/24 13:00 Temperature Temperature Source Pulse Rate 65 Pulse Rate from SpO2 Sensor 65 Respiratory Rate 17 Blood Pressure 164/74 H 154/79 H Blood Pressure Mean 98 107 Pulse Oximetry 96 Oxygen Delivery Method Sepsis Recent Fever Within 48 Hours Sepsis New/Unexplained Change in Mental Status Sepsis Action Taken by Nursing 01/23/24 13:00 01/23/24 13:30 01/23/24 13:30 Temperature Temperature Source Pulse Rate 64 64 Pulse Rate from SpO2 Sensor 64 65 Respiratory Rate 16 19 Blood Pressure 180/93 H Blood Pressure Mean 111 Pulse Oximetry 96 97 Oxygen Delivery Method Sepsis Recent Fever Within 48 Hours Sepsis New/Unexplained Change in Mental Status Sepsis Action Taken by Nursing 01/23/24 14:00 01/23/24 14:00 01/23/24 14:30 Temperature Temperature Source Pulse Rate 65 66 Pulse Rate from SpO2 Sensor 65 66 Respiratory Rate 17 16 Blood Pressure 173/100 H Blood Pressure Mean 129 Pulse Oximetry 98 98 Oxygen Delivery Method Sepsis Recent Fever Within 48 Hours Sepsis New/Unexplained Change in Mental Status Sepsis Action Taken by Nursing 01/23/24 14:32 01/23/24 14:32 01/23/24 14:55 Temperature Temperature Source Pulse Rate 65 68 Pulse Rate from SpO2 Sensor 65 68 Respiratory Rate 21 20 Blood Pressure 220/120 H Blood Pressure Mean 124 Pulse Oximetry 98 98 Oxygen Delivery Method Sepsis Recent Fever Within 48 Hours Sepsis New/Unexplained Change in Mental Status Sepsis Action Taken by Nursing 01/23/24 14:55 01/23/24 14:58 01/23/24 15:00 Temperature Temperature Source Pulse Rate 67 72 Pulse Rate from SpO2 Sensor Respiratory Rate 15 Blood Pressure 208/109 H Blood Pressure Mean 153 Pulse Oximetry Oxygen Delivery Method Sepsis Recent Fever Within 48 Hours Sepsis New/Unexplained Change in Mental Status Sepsis Action Taken by Detention Medications Current Medication List: was personally reviewed by me Laboratory Data Attestation: I reviewed the patient's lab results. 01/23/24 09:45 01/23/24 09:45 Lab Results 01/23/24 01/23/24 01/23/24 Range/Units 09:45 09:45 09:45 WBC 5.55 (4.8-10.8) K/ul RBC 6.13 H (4.70-6.10) M/uL Hgb 16.9 (14.0-18.0) g/dl Hct 51.1 (42.0-52.0) % MCV 83.4 (80.0-100.0) fL MCH 27.6 (25.0-34.0) pg MCHC 33.1 (32.0-36.0) g/dL RDW Std Deviation 45.5 (36.4-46.3) fL RDW Coeff of Edie 15.3 H (11.5-14.5) % Plt Count 272 (130-400) K/uL MPV 9.6 (9.4-12.4) fL Immature Gran % (Auto) 1.1 % Neut % (Auto) 59.4 % Lymph % (Auto) 30.1 % Dolores % (Auto) 7.2 % Eos % (Auto) 1.8 % Baso % (Auto) 0.4 % Neut # (Auto) 3.30 (1.40-6.50) K/uL Lymph # (Auto) 1.67 (1.20-3.40) K/uL Dolores # (Auto) 0.40 (0.11-0.59) K/uL Eos # (Auto) 0.10 (0.00-0.50) K/uL Baso # (Auto) 0.02 (0.00-0.20) K/uL Immature Gran # (Auto) 0.06 (0.01-0.20) K/uL Sodium 137 (136-145) mmol/L Potassium TNP 4.3 Chloride 102 (98-107) mmol/L Carbon Dioxide 27 (21-32) mmol/L Anion Gap 8 (3-11) BUN 27 H (6-23) mg/dl Creatinine 1.44 H (0.6-1.4) mg/dl Est Cr Clr Drug Dosing 69.1 ml/min Est GFR ( Amer) 59.9 ml/min Est GFR (Non-Af Amer) 51.7 ml/min BUN/Creatinine Ratio 18.8 (10-20) Glucose 132 H (70-99(Fasting)) mg/dl Calcium 10.3 (8.6-10.3) mg/dl Total Bilirubin 0.3 (0.2-1.0) mg/dl AST TNP 15 ALT 27 (7-52) U/L Alkaline Phosphatase 69 (34-104) U/L Total Protein 8.0 (6.0-8.3) gm/dl Albumin 4.1 (3.4-5.0) gm/dl Globulin 3.9 (2.5-4.0) gm/dl Albumin/Globulin Ratio 1.1 (0.9-2) Lipase 52 (11-82) U/L Urine Color Urine Appearance (Clear) Urine pH (4.5-7.5) Ur Specific Goodman (1.000-1.030) Urine Protein (Negative) Urine Glucose (UA) (Negative) Urine Ketones (Negative) Urine Blood (Negative) Urine Nitrite (Negative) Urine Bilirubin (Negative) Urine Urobilinogen (Negative) Ur Leukocyte Esterase (Negative) 01/23/24 Range/Units Unknown WBC (4.8-10.8) K/ul RBC (4.70-6.10) M/uL Hgb (14.0-18.0) g/dl Hct (42.0-52.0) % MCV (80.0-100.0) fL MCH (25.0-34.0) pg MCHC (32.0-36.0) g/dL RDW Std Deviation (36.4-46.3) fL RDW Coeff of Edie (11.5-14.5) % Plt Count (130-400) K/uL MPV (9.4-12.4) fL Immature Gran % (Auto) % Neut % (Auto) % Lymph % (Auto) % Dolores % (Auto) % Eos % (Auto) % Baso % (Auto) % Neut # (Auto) (1.40-6.50) K/uL Lymph # (Auto) (1.20-3.40) K/uL Dolores # (Auto) (0.11-0.59) K/uL Eos # (Auto) (0.00-0.50) K/uL Baso # (Auto) (0.00-0.20) K/uL Immature Gran # (Auto) (0.01-0.20) K/uL Sodium (136-145) mmol/L Potassium Chloride (98-107) mmol/L Carbon Dioxide (21-32) mmol/L Anion Gap (3-11) BUN (6-23) mg/dl Creatinine (0.6-1.4) mg/dl Est Cr Clr Drug Dosing ml/min Est GFR ( Amer) ml/min Est GFR (Non-Af Amer) ml/min BUN/Creatinine Ratio (10-20) Glucose (70-99(Fasting)) mg/dl Calcium (8.6-10.3) mg/dl Total Bilirubin (0.2-1.0) mg/dl AST ALT (7-52) U/L Alkaline Phosphatase (34-104) U/L Total Protein (6.0-8.3) gm/dl Albumin (3.4-5.0) gm/dl Globulin (2.5-4.0) gm/dl Albumin/Globulin Ratio (0.9-2) Lipase (11-82) U/L Urine Color Yellow Urine Appearance Clear (Clear) Urine pH 6.0 (4.5-7.5) Ur Specific Goodman 1.036 H (1.000-1.030) Urine Protein Negative (Negative) Urine Glucose (UA) 3+ H (Negative) Urine Ketones Negative (Negative) Urine Blood Negative (Negative) Urine Nitrite Negative (Negative) Urine Bilirubin Negative (Negative) Urine Urobilinogen Negative (Negative) Ur Leukocyte Esterase Negative (Negative) Administered Medications Discontinued Medications Amlodipine Besylate (Amlodipine Besylate 5 Mg Tab) 5 mg PO ONE STA Stop: 01/23/24 14:51 Last Admin: 01/23/24 15:03 Dose: Not Given Documented By: AM Amlodipine Besylate (Amlodipine Besylate 5 Mg Tab) 5 mg PO NOW ONE Stop: 01/23/24 15:14 Last Admin: 01/23/24 15:31 Dose: 5 mg Documented By: ROMANA Hydralazine HCl (Hydralazine Hcl 20 Mg/Ml Vial) 2.5 mg IV NOW ONE Stop: 01/23/24 14:46 Last Admin: 01/23/24 15:06 Dose: 2.5 mg Documented By: ILEANA Cefepime HCl (Maxipime) 2,000 mg in 20 mls @ 5 mls/min IV NOW STA; Protocol Stop: 01/23/24 13:16 Last Admin: 01/23/24 13:40 Dose: 5 mls/min Documented By: ILEANA Lactated Ringer's (Lr) 500 mls @ 999 mls/hr IV .Q31M ONE Stop: 01/23/24 15:45 Last Infusion: 01/23/24 16:02 Dose: Infused Documented By: Admin: 01/23/24 15:30 Dose: 999 mls/hr Documented By: ROMANA Ioversol (Optiray 320 100ml) 93 ml IV ONCE ONE Stop: 01/23/24 15:25 Last Admin: 01/23/24 15:24 Dose: 93 ml Documented By: SHAVON Imaging Data Radiologist's Impression: Abdomen/Pelvis CT 01/23/24 15:11 CT OF THE ABDOMEN AND PELVIS WITH CONTRAST CLINICAL HISTORY: hematuria. hx RCC + prostate CA COMPARISON STUDY: None. TECHNIQUE: Following IV administration of 93 mL of Optiray, axial images of the abdomen and pelvis were obtained from the lung bases to the proximal femurs. Images were reviewed in the axial, sagittal, and coronal planes. IV contrast was administered without complication. Automated exposure control was utilized for the study. A dose lowering technique was utilized adhering to the principles of ALARA. CT DOSE: 1534.01 mGy.cm FINDINGS: Lung bases are unremarkable. There is mild cardiomegaly. No pneumatosis, free air or portal venous gas is present. There is hepatic steatosis. A 1.1 cm hypodense segment 7 hepatic lesion is indeterminate although not highly suspicious. Spleen, left adrenal gland and pancreas are unremarkable. Is no biliary or pancreatic ductal dilatation. A 1.6 cm right adrenal nodule is present. There is no abdominal or pelvic lymphadenopathy. Images of the pelvis are degraded by streak artifact from bilateral hip arthroplasties. There are postoperative findings within the spine. Several hyperdense lesions within the bilateral kidneys are noted. 1.7 cm lesion within the upper pole of the right kidney on image 131 of 409 is present. There is adjacent cortical volume loss. There is also a 1.7 cm hyperdense/enhancing left renal lesion on image 171 and a 1.1 cm intermediate attenuation focus within the midpole of the left kidney on image 140. No urothelial lesions are identified although sensitivity is diminished on this exam given lack of delayed phase imaging and streak artifact from hip arthroplasties. There is no evidence for a bowel obstruction. The appendix is normal. No fluid collections are present. No suspicious lesions are identified within the visualized skeletal structures. IMPRESSION: 1. No acute process within the abdomen or pelvis. 2. No bowel obstruction. No bowel wall thickening. 3. Several hyperdense bilateral renal lesions, as described above. These could reflect solid enhancing renal lesions or proteinaceous cysts. Comparison with prior imaging studies, if available, is recommended. In the absence of prior studies, a nonemergent renal protocol MRI is recommended. 4. No urinary calculi or hydronephrosis. Decreased sensitivity for detection of urothelial lesions, as described above. ACT 112: Positive. There are findings on this exam that require communication between the performing entity and the patient following Patient Test Result Information Act ([place] Act 112) guidelines. Electronically signed by: Stephon Mayo M.D. 01/23/2024 3:44 PM Discharge Plan Visit Data Chief Complaint: Urinary Symptoms Stated Complaint: BLOOD IN URINE ED Provider: Jonathan Abreu Discharge Problem: Acute UTI, History of atrial fibrillation, History of kidney cancer Forms Stand Alone Forms: [facility] Prescriptions Prescriptions: No Action cyclobenzaprine 10 mg tablet 10 mg PO TID amitriptyline 25 mg tablet 25 mg PO HS Jardiance 25 mg tablet 25 mg PO DAILY gabapentin 800 mg tablet 800 mg PO TID Eliquis 5 mg tablet 5 mg PO BID sotalol 80 mg tablet 80 mg PO BID sildenafil 100 mg tablet 100 mg PO UD trazodone 100 mg tablet 100 mg PO HS metformin 1,000 mg tablet 1,000 mg PO BID Referrals Referrals: PCP,NO [Physician] -
[2024-01-23 10:16] LABS: Basophils # (auto) 0.02 K/uL (0.00-0.20); Basophils % (auto) 0.4 %; Eosinophils % (auto) 1.8 %; Hematocrit (blood only) 51.1 % (42.0-52.0); Hemoglobin 16.9 g/dl (14.0-18.0); Immature Granulocytes # (auto) 0.06 K/uL (0.01-0.20); Immature Granulocytes % (auto) 1.1 %; Lymphocytes # (auto) 1.67 K/uL (1.20-3.40); Lymphocytes % (auto) 30.1 %; Mean Corpuscular Hemoglobin 27.6 pg (25.0-34.0); Mean Corpuscular Hgb Conc 33.1 g/dL (32.0-36.0); Mean Corpuscular Volume 83.4 fL (80.0-100.0); Mean Platelet Volume 9.6 fL (9.4-12.4); Monocytes % (auto) 7.2 %; Neutrophils % (auto) 59.4 %; Platelet Count 272 K/uL (130-400); RDW Coefficient of Variation 15.3 % (11.5-14.5); RDW Standard Deviation 45.5 fL (36.4-46.3); Red Blood Count 6.13 M/uL (4.70-6.10); White Blood Count 5.55 K/ul (4.8-10.8)
[2024-01-23 10:22] LABS: Appearance Urine Clear (Clear); Bilirubin Urine Negative (Negative); Blood Urine Negative (Negative); Color Urine Yellow; Glucose Urine UA 3+ (Negative); Ketones Urine Negative (Negative); Leukocyte Esterase Urine Negative (Negative); Nitrite Urine Negative (Negative); Protein Urine Negative (Negative); Specific Gravity Urine 1.036 (1.000-1.030); Urobilinogen Urine Negative (Negative)
[2024-01-23 10:34] LABS: Alanine Aminotransferase 27 U/L (7-52); Albumin Globulin Ratio 1.1 (0.9-2); Albumin Level 4.1 gm/dl (3.4-5.0); Alkaline Phosphatase 69 U/L (34-104); Anion Gap 8 (3-11); BUN Creatinine Ratio 18.8 (10-20); Bilirubin,Total 0.3 mg/dl (0.2-1.0); Blood Urea Nitrogen 27 mg/dl (6-23); Calcium 10.3 mg/dl (8.6-10.3); Carbon Dioxide 27 mmol/L (21-32); Chloride 102 mmol/L (98-107); Creatinine Clr Calc Pharmacy 69.1 ml/min; Est GFR (African American) 59.9 ml/min; Est GFR (Non-African American) 51.7 ml/min; Globulin 3.9 gm/dl (2.5-4.0); Glucose 132 mg/dl (70-99(Fasting)); Lipase 52 U/L (11-82); Sodium 137 mmol/L (136-145)
[2024-01-23 10:43] LABS: Potassium 4.3 mmol/L (3.5-5.1)
[2024-01-23] MEDS: CEFEPIME 2,000 MG/20 ML VIAL IV STA (13:40)
--- NOTE | 2024-01-23 14:37 | History & Physical Report ---
Date of Service January 23, 2024 Assessment & Plan (1) Complicated UTI (urinary tract infection): Plan: Complicated UTI Patient with approximately 1 month of hematuria and reports he has not been on any antibiotics. Was called and told he had a resistant form of Pseudomonas and is allergic to fluoroquinolones, was recommended to come to the ER. He is not taking any antibiotics in the last month Per review of [facility] note: Presented hematuria. UCx was positive for Pseudomonas aeruginosa sensitive to Cipro however patient could not receive this due to allergy. Was recommended for IV antibiotics. Culture and specific sensitivities were not faxed with these records. Callback has been placed were requesting micro results/sensitivities. Imaging also not sent, this has been requested. On review of the ER note patient was recommended for [facility] to where urology services were recommended due to his hematuria, family history of prostate cancer, and past history of partial nephrectomy for clear- cell carcinoma however transfer was not able to be performed at time of hospitalization due to code flow at various institutions. Patient was not toxic. Patient did sign out AMA from that visit. No leukocytosis, hypotension, tachypnea, or fever is present on admission. Patient does not appear septic Empiric cefepime ordered Pending transfer records including imaging. If no imaging is able to be obtained then will obtain a CTA/P with IV contrast as patient has had a history of partial nephrectomy for renal cell cancer Cefepime every 8 hours continued (2) Hematuria: Plan: No hematuria on today's UA. Given complaints of decreased stream/difficulty voiding, recurrent hematuria, and history of bladder shaving high suspicion for prostate malignancy. CT with contrast is pending as noted If there are no emergent concerns requiring intervention patient should follow-up with his urology team at [facility]. If CT shows any urgent/emergent concerns can consult urology in house Differential includes UTI (3) History of back surgery: Plan: No acute change, no paresthesias (4) History of cardiac cath: Plan: Nonobstructive Patient denies chest pain, chest pressure, anginal symptoms recent (5) HTN (hypertension): Plan: Patient reports that he is on lisinopril which she did take morning of 01/22. He is hypertensive to 220s in the ER. 1 dose of hydralazine ordered, he is already on sotalol. Amlodipine added for adjunct control Asymptomatic at bedside assessment Home sotalol ordered, lisinopril held for mild ODILON (6) Hx of renal cell cancer: Plan: S/p nephrectomy without recurrence to his knowledge Reports that this was done in [place], records pending CT pending (7) Paroxysmal A-fib: Plan: On Eliquis Admitting EKG: Sinus Continue Eliquis (8) ODILON (acute kidney injury): Plan: Baseline creatinine appears approximately 1.2, 1.44 on admission. BMP daily Renally dose medications. Creatinine clearance for dosing on admission 69.1 History of Present Illness Primary Care Provider: María Elena Cornelius is seen at the [facility]. Reports symptoms began 1 onth ago. Developed some left flank pain 'and then half hour later I started pissing blood'. Blood with urination next 2 days. Went to the ER at [facility] and had an evaluation. UA was infected appearing, dc on antibiotics. UC 5 days later was positive so recommended he come to the ER [facility] for admission. However hospital was full and 'noone could take me'. He has not been on any antibiotics. Hematuria seemed to improve, but then this past Monday had return of hematuria. Came to the ER here for further evaluation and care. Prostate cancer runs in his family. Endorses difficulty initiation stream/weaker steam in the last few years. Was seen as outpt and told he had a large prostate which was 'shaved down' by a doctor in [place]. PCP is María Elena Merritt [facility] No fever, chills, or sweats. No nausea vomiting. No abdominal pain. No flank pain at admit. 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 Med Hx: Chronic back pain with multiple surguries at [place] and one at [facility]. Afib on eliquis. hip replacements bilaterally at [place]. +HTN on lisinopril which he did take this morning. +DM on metformin. NO CHF or [place]. No hx strokes. No history of immune deficiency. Liver cyst for many years, otherwise denies liver hx. Allergic to cipro, flagyl, and morphine. Cipro --> diffuse hives Tobacco: Cigarette 1 pack per 4 days x20 years. EtOH rare social. No recreational drug use Allergies Allergy/AdvReac Type Severity Reaction Status Date / Time ciprofloxacin [From Cipro] Allergy Unknown Hives Verified 01/23/24 11:45 morphine AdvReac Unknown GI UPSET Verified 01/23/24 11:45 Home Medications Medication Instructions Recorded Confirmed Type amitriptyline 25 mg tablet 25 mg PO HS 01/23/24 01/23/24 History apixaban 5 mg tablet (Eliquis) 5 mg PO BID 01/23/24 01/23/24 History cyclobenzaprine 10 mg tablet 10 mg PO TID 01/23/24 01/23/24 History empagliflozin 25 mg tablet 25 mg PO DAILY 01/23/24 01/23/24 History (Jardiance) gabapentin 800 mg tablet 800 mg PO TID 01/23/24 01/23/24 History metformin 1,000 mg tablet 1,000 mg PO BID 01/23/24 01/23/24 History sildenafil 100 mg tablet 100 mg PO UD 01/23/24 01/23/24 History sotalol 80 mg tablet 80 mg PO BID 01/23/24 01/23/24 History trazodone 100 mg tablet 100 mg PO HS 01/23/24 01/23/24 History Past Med/Surg History Problem List (Updated 01/23/24 @ 15:17 by Cortes Clinton MD) Hematuria Akinesia Complicated UTI (urinary tract infection) Cough ODILON (acute kidney injury) Lumbar back pain with radiculopathy affecting left lower extremity Acute renal failure (ARF) Renal insufficiency CAD (coronary artery disease) (Chronic) DVT prophylaxis Paroxysmal A-fib (Chronic) Chronic back pain (Chronic) B/L LE radiculopathy History of cardiac cath (Chronic) non obstructive CAD 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 Hx of renal cell cancer (Chronic) s/p right partial nephrectomy (no chemo or radiation) Hx of partial nephrectomy (Chronic) RIGHT History of right hip replacement (Chronic) History of arthroscopic knee surgery (Chronic) History of back surgery (Chronic) X3, last back surgery 05/2019 Hx of eye surgery (Chronic) RIGHT Obesity (Chronic) HTN (hypertension) (Chronic) no meds Spinal stenosis, lumbar region with neurogenic claudication Encounter for pre-operative examination Family History Brother Kidney disease Social History Smoking Status: Never smoker Cigarettes Per Day: 10 cigarettes x 30 years; Second Hand Exposure: Yes (DAILY); Do You Dip or Chew Tobacco: No; Hx Alcohol Use: Yes Hx Substance Use: No Preferred Language: Wallisian Communication Ability: Effective Senior Air Director Required: No Beliefs That Will Affect Care: None Current Living Situation: Significant Other Feels Safe at Home: Yes Assistive Devices: None Physical Exam Physical Exam: General: A&Ox3. NAD. Cooperative. HEENT: Atraumatic, normocephalic. R eye clouded/blind. L eye vision intact, pupil reactive to light Pulm: CTAB A&P. -wheezes, -rales, -rhonchi. Symmetrical chest rise. No increased work of breathing. No respiratory distress. Cardiac: RRR, -mrg. Radial pulses intact and symmetrical. Abdominal: Nontender, nondistended, soft. BS present. Results & Data Results & Data Vital Signs (Past 12 Hours) Vital Signs Temp Pulse Resp BP Pulse Ox O2 Del Method 01/23/24 14:32 220/120 H 01/23/24 14:32 65 21 98 01/23/24 14:30 66 16 98 01/23/24 14:00 65 17 98 01/23/24 14:00 173/100 H 01/23/24 13:30 64 19 97 01/23/24 13:30 180/93 H 01/23/24 13:00 64 16 96 01/23/24 13:00 154/79 H 01/23/24 12:30 164/74 H 01/23/24 12:30 65 17 96 01/23/24 12:00 167/96 H 01/23/24 12:00 65 17 97 01/23/24 11:30 69 25 H 96 01/23/24 11:30 160/75 H 01/23/24 11:01 67 19 95 01/23/24 11:01 166/97 H 01/23/24 11:00 66 17 96 01/23/24 10:30 190/91 H 01/23/24 10:30 66 19 94 01/23/24 10:17 67 01/23/24 10:14 67 19 95 01/23/24 09:27 35.9 C L 78 15 199/135 H 96 Room Air PG Care Time/CCT Total # of Minutes Spent Total Time Spent with Patient: Total time spent is greater than 50% in coordination of care (as documented) at patient's floor/unit and/or counseling patient: Coding Level of Care Code 16701 INT INP/OBS CARE 375MIN Diagnoses Complicated UTI (urinary tract infection) N39.0 Hematuria R31.9 History of back surgery Z98.890 History of cardiac cath Z98.890 HTN (hypertension) I10 Hx of renal cell cancer Z85.528 Paroxysmal A-fib I48.0 ODILON (acute kidney injury) N17.9
[2024-01-23] MEDS ORDERED: METOPROLOL TARTRATE 25 MG TAB PO SCH (15:00)
[2024-01-23] MEDS: amLODIPine BESYLATE 5 MG TAB PO STA (15:03)
[2024-01-23] MEDS: hydrALAZINE HCL 20 MG/ML VIAL IV ONE (15:06)
[2024-01-23] MEDS ORDERED: hydrALAZINE HCL 20 MG/ML VIAL IV PRN (15:15)
[2024-01-23] MEDS ORDERED: CARBOHYDRATES FOR HYPOGLYCEMIA PO PRN (15:18)
[2024-01-23] MEDS ORDERED: GLUCOSE 10 TAB/TUBE PO PRN (15:18)
[2024-01-23] MEDS ORDERED: GLUCAGON FOR INJ 1 MG VIAL SQ PRN (15:18)
[2024-01-23] MEDS ORDERED: GLUCOSE 40% GEL 15 GM TUBE PO PRN (15:18)
[2024-01-23] MEDS ORDERED: DEXTROSE 50% 50 ML SYRINGE IV PRN (15:18)
[2024-01-23] MEDS: OPTIRAY 320 100ml IV ONE (15:24)
[2024-01-23] MEDS: LACTATED RINGER'S 500 ML IV ONE (15:30)
[2024-01-23] MEDS: amLODIPine BESYLATE 5 MG TAB PO ONE (15:31)
--- NOTE | 2024-01-23 15:46 | CT Scan Report ---
CT OF THE ABDOMEN AND PELVIS WITH CONTRAST CLINICAL HISTORY: hematuria. hx RCC + prostate CA COMPARISON STUDY: None. TECHNIQUE: Following IV administration of 93 mL of Optiray, axial images of the abdomen and pelvis we re obtained from the lung bases to the proximal femurs. Images were reviewed in the axial, sagittal, and coronal planes. IV contrast was administered without complication. Automated exposure control wa s utilized for the study. A dose lowering technique was utilized adhering to the principles of ALARA . CT DOSE: 1534.01 mGy.cm FINDINGS: Lung bases are unremarkable. There is mild cardiomegaly. No pneumatosis, free air or portal venous gas is present. There is hepatic steatosis. A 1.1 cm hypodense segment 7 hepatic lesion is in determinate although not highly suspicious. Spleen, left adrenal gland and pancreas are unremarkable. Is no biliary or pancreatic ductal dilatation. A 1.6 cm right adrenal nodule is present. There is no abdominal or pelvic lymphadenopathy. Images of the pelvis are degraded by streak artifact from bilat eral hip arthroplasties. There are postoperative findings within the spine. Several hyperdense lesion s within the bilateral kidneys are noted. 1.7 cm lesion within the upper pole of the right kidney on image 131 of 409 is present. There is adjacent cortical volume loss. There is also a 1.7 cm hyperdens e/enhancing left renal lesion on image 171 and a 1.1 cm intermediate attenuation focus within the mid pole of the left kidney on image 140. No urothelial lesions are identified although sensitivity is di minished on this exam given lack of delayed phase imaging and streak artifact from hip arthroplasties . There is no evidence for a bowel obstruction. The appendix is normal. No fluid collections are pres ent. No suspicious lesions are identified within the visualized skeletal structures. IMPRESSION: 1. No acute process within the abdomen or pelvis. 2. No bowel obstruction. No bowel wall thickening. 3. Several hyperdense bilateral renal lesions, as described above. These could reflect solid enhancin g renal lesions or proteinaceous cysts. Comparison with prior imaging studies, if available, is recom mended. In the absence of prior studies, a nonemergent renal protocol MRI is recommended. 4. No urinary calculi or hydronephrosis. Decreased sensitivity for detection of urothelial lesions, a s described above. ACT 112: Positive. There are findings on this exam that require communication between the performing entity and the patient following Patient Test Result Information Act ([place] Act 112) guidelines. Electronically signed by: Stephon Mayo M.D. 01/23/2024 3:44 PM
--- NOTE | 2024-01-23 17:46 | Electrocardiogram Report ---
Test Reason : Blood Pressure : / mmHG Vent. Rate : 067 BPM Atrial Rate : 067 BPM P-R Int : 182 ms QRS Dur : 086 ms QT Int : 398 ms P-R-T Axes : 045 082 164 degrees QTc Int : 420 ms Normal sinus rhythm Poor R wave progression, consider anterior [place] vs. lead placement vs. LVH Abnormal ECG No previous ECGs available Confirmed by Abdirahman Krishnamurthy ([id number]) on 01/23/2024 5:46:20 PM Referred By: María Elena Richards Confirmed By:Mehrdad Krishnamurthy
[2024-01-23] MEDS ORDERED: ACETAMINOPHEN 325 MG TAB PO PRN (18:58)
[2024-01-23] MEDS ORDERED: NON-FORMULARY MEDICATION (Sildenafil 100 mg tablet) PO SCH (18:58)
[2024-01-23] MEDS: INSULIN ASPART PER UNIT CHARGE SC SCH (19:06)
[2024-01-23] MEDS: APIXABAN 5 MG TABLET PO SCH (20:31)
[2024-01-23] MEDS: GABAPENTIN 800 MG TAB PO SCH (20:32)
[2024-01-23] MEDS: CYCLOBENZAPRINE HCL 10 MG TAB PO SCH (20:32)
[2024-01-23] MEDS: traZODone HCL 100 MG TAB PO SCH (20:32)
[2024-01-23] MEDS: SOTALOL HCL 80 MG TAB PO SCH (20:32)
[2024-01-23] MEDS: AMITRIPTYLINE HCL 25 MG TAB PO SCH (20:33)
[2024-01-23] MEDS: LANTUS PER UNIT CHARGE SQ SCH (20:49)
[2024-01-23] MEDS: CEFEPIME 2,000 MG in SYRINGE 0 ML IV SCH (22:33)
[2024-01-24 06:25] LABS: Basophils # (auto) 0.04 K/uL (0.00-0.20); Basophils % (auto) 0.8 %; Eosinophils # (auto) 0.12 K/uL (0.00-0.50); Eosinophils % (auto) 2.3 %; Hematocrit (blood only) 47.2 % (42.0-52.0); Hemoglobin 15.7 g/dl (14.0-18.0); Immature Granulocytes # (auto) 0.06 K/uL (0.01-0.20); Immature Granulocytes % (auto) 1.2 %; Lymphocytes # (auto) 1.52 K/uL (1.20-3.40); Lymphocytes % (auto) 29.3 %; Mean Corpuscular Hemoglobin 27.4 pg (25.0-34.0); Mean Corpuscular Hgb Conc 33.3 g/dL (32.0-36.0); Mean Corpuscular Volume 82.5 fL (80.0-100.0); Mean Platelet Volume 9.4 fL (9.4-12.4); Monocytes # (auto) 0.67 K/uL (0.11-0.59); Monocytes % (auto) 12.9 %; Neutrophils # (auto) 2.77 K/uL (1.40-6.50); Neutrophils % (auto) 53.5 %; Platelet Count 235 K/uL (130-400); RDW Coefficient of Variation 15.5 % (11.5-14.5); RDW Standard Deviation 46.1 fL (36.4-46.3); Red Blood Count 5.72 M/uL (4.70-6.10); White Blood Count 5.18 K/ul (4.8-10.8)
[2024-01-24 06:33] LABS: BUN Creatinine Ratio 24.8 (10-20); Calcium 9.3 mg/dl (8.6-10.3); Creatinine Clr Calc Pharmacy 91.5 ml/min; Est GFR (African American) 83.9 ml/min; Est GFR (Non-African American) 72.4 ml/min; Potassium 4.1 mmol/L (3.5-5.1)
[2024-01-24] MEDS ORDERED: amLODIPine BESYLATE 5 MG TAB PO SCH (09:00)
[2024-01-24] MEDS: amLODIPine BESYLATE 5 MG TAB PO SCH (09:23)
--- NOTE | 2024-01-24 12:41 | Hospitalist Progress Note ---
Date of Service January 24, 2024 Assessment & Plan (1) Complicated UTI (urinary tract infection): Plan: Apparently he had Pseudomonas recently isolated on a culture. He is currently on cefepime. Hopefully there is an oral antibiotic that we will cover the Pseudomonas when sensitivities are available. (2) Hematuria: Plan: Eliquis has been discontinued. Neurology consultation is pending. CT with contrast completed on admission reveals bilateral renal cysts (3) History of back surgery: Plan: Stable. No intervention necessary at this time (4) History of cardiac cath: Plan: Nonobstructive coronary artery disease. Stable. Continue current medical management (5) HTN (hypertension): Plan: Amlodipine was started on admission. He also remains on lisinopril and sotalol. Will follow. (6) Hx of renal cell cancer: Plan: S/p partial nephrectomy without recurrence. No intervention necessary at this time (7) Paroxysmal A-fib: Plan: Currently in normal sinus rhythm. Eliquis has been discontinued due to hematuria (8) ODILON (acute kidney injury): Plan: Mild on admission. Monitor intake and output. Serial labs Plan Hopeful discharge to home on an oral antibiotic within the next day or 2 Admission and Anticipated Discharge Date Admission Date: January 23, 2024 Subjective Alert and oriented. No distress. is at the bedside. Eliquis has been discontinued since he is having hematuria. He takes Eliquis for paroxysmal atrial fibrillation but currently is in normal sinus rhythm. Urology consultation requested and pending. He remains on intravenous cefepime, day 2. Urine culture results are pending. Amlodipine was started on admission in addition to his lisinopril and sotalol for better blood pressure control. Review of Systems 2 Review of Systems: Constitutional-no fever or chills ENT-no blurred vision, no double vision, no epistaxis, no sore throat Respiratory-no cough, no wheezing, no shortness of breath Cardiac-no palpitations, no chest pain, no syncope GI-no nausea, vomiting, diarrhea, melena, hematochezia -no urinary retention, no urinary incontinence Musculoskeletal-no joint pain, no muscle tenderness Skin-no bruising, no rashes, no pruritus Neuro-no isolated weakness, no paresthesia, no weakness Psych-no depression, no anxiety Physical Exam 2 Physical Exam: General-alert and oriented x3, no fever, no chills HEENT-head atraumatic and normocephalic, pupils equal and reactive to light, extraocular muscles intact Neck-no lymphadenopathy or thyromegaly, trachea midline Chest-clear to auscultation. No rales, wheezing or rhonchi Cardiac-regular rate and rhythm, normal S1 and S2 Abdomen-normal bowel sounds, no hepatosplenomegaly Extremities-no cyanosis, clubbing, or edema Neuro-cranial nerves II through XII intact, motor and sensory function within normal limits, strength symmetrical, no focal deficits Psych-normal affect, normal mood Results & Data Results & Data Vital Signs (Past 12 Hours) Vital Signs Temp Pulse Pulse Resp BP Pulse Ox O2 Del Method 01/24/24 12:04 Room Air 01/24/24 12:00 62 01/24/24 11:03 36.9 C 67 15 158/97 H 95 Room Air 01/24/24 07:31 36.8 C 63 15 159/85 H 95 Room Air 01/24/24 03:11 36.7 C 63 18 161/94 H 100 Room Air Laboratory Results 01/24/24 05:54 01/24/24 05:54 PG Care Time/CCT Total # of Minutes Spent Total Time Spent with Patient: Total time spent is greater than 50% in coordination of care (as documented) at patient's floor/unit and/or counseling patient: Coding Level of Care Code 08064 SUB INP/OBS CARE 3/50MIN Diagnoses Complicated UTI (urinary tract infection) N39.0 Hematuria R31.9 History of back surgery Z98.890 History of cardiac cath Z98.890 HTN (hypertension) I10 Hx of renal cell cancer Z85.528 Paroxysmal A-fib I48.0 ODILON (acute kidney injury) N17.9
--- NOTE | 2024-01-24 15:05 | Urology Consultation ---
Date of Consultation January 24, 2024 Assessment & Plan (1) Hematuria: Plan 63-year-old male currently admitted for gross hematuria. Per chart review has a history of RCC status post partial nephrectomy although he did not mention this. He does have a history of what sounds like a TURP as well. Spontaneously voiding. Patient should get a standard hematuria workup which would be either a CT scan or MRI with and without contrast plus a cystoscopy. This can be done as an outpatient. Urology to sign off Urology will schedule outpatient follow-up History of Present Illness Attending Physician: Ruy Amaro MD History of Present Illness 63-year-old male with a history of gross hematuria currently admitted to medicine. He is currently spontaneously voiding. He reports roughly a 1 month history of hematuria. He does have a history of what sounds like a TURP 5 years ago in [place]. Although he did not mention this it appears that he had a history of a partial nephrectomy for RCC. A urine culture is pending. He is his CT scan the abdomen pelvis with contrast which I independently reviewed which does show several not determinant renal lesions given it was not done with and without contrast. He has bilateral hip replacements so his bladder is hard to review on imaging. He does have a family history of prostate cancer. He no longer follows with his urologist. Allergies Allergy/AdvReac Type Severity Reaction Status Date / Time ciprofloxacin [From Cipro] Allergy Unknown Hives Verified 01/23/24 11:45 morphine AdvReac Unknown GI UPSET Verified 01/23/24 11:45 Home Medications Medication Instructions Recorded Confirmed Type amitriptyline 25 mg tablet 25 mg PO HS 01/23/24 01/23/24 History apixaban 5 mg tablet (Eliquis) 5 mg PO BID 01/23/24 01/23/24 History cyclobenzaprine 10 mg tablet 10 mg PO TID 01/23/24 01/23/24 History empagliflozin 25 mg tablet 25 mg PO DAILY 01/23/24 01/23/24 History (Jardiance) gabapentin 800 mg tablet 800 mg PO TID 01/23/24 01/23/24 History metformin 1,000 mg tablet 1,000 mg PO BID 01/23/24 01/23/24 History sildenafil 100 mg tablet 100 mg PO UD 01/23/24 01/23/24 History sotalol 80 mg tablet 80 mg PO BID 01/23/24 01/23/24 History trazodone 100 mg tablet 100 mg PO HS 01/23/24 01/23/24 History Patient History Family History Brother Kidney disease Social History (Updated 01/23/24 @ 16:26 by Jonathan Abreu MD) Smoking Status: Current every day smoker Tobacco Type: Cigarettes Cigarettes Per Day: 5; Second Hand Exposure: Yes (DAILY); Do You Dip or Chew Tobacco: No; Hx Alcohol Use: Yes Hx Substance Use: No Preferred Language: Mohawk Communication Ability: Effective Planning Manager Required: No Beliefs That Will Affect Care: None Current Living Situation: Spouse and Family Current Living Situation Comment: lives with , daughter, and grandson Other Information That Helps Us Care for You: No Feels Safe at Home: Yes Safety Concerns: Feels Safe At This Time Assistive Devices: Cane and Walker Physical Exam Physical Exam: General: Alert and oriented, no acute distress HEENT: Normocephalic, mucous membranes moist Pulmonary: Nonlabored respirations Abdomen: Nondistended Extremities: Moves all 4 spontaneously Neuro: No gross deficits Skin: Warm, dry, no rashes noted Results & Data Vital Signs (Past 12 Hours) Vital Signs Temp Pulse Pulse Resp BP Pulse Ox O2 Del Method 01/24/24 12:04 Room Air 01/24/24 12:00 62 01/24/24 11:03 36.9 C 67 15 158/97 H 95 Room Air 01/24/24 07:31 36.8 C 63 15 159/85 H 95 Room Air 01/24/24 03:11 36.7 C 63 18 161/94 H 100 Room Air PG Care Time/CCT Total # of Minutes Spent Total Time Spent with Patient: Total time spent is greater than 50% in coordination of care (as documented) at patient's floor/unit and/or counseling patient: Coding Level of Care Code 69687 IN/OBS CONSULT LVL 3,45M Diagnoses Hematuria R31.9
[2024-01-25 06:35] LABS: Basophils # (auto) 0.04 K/uL (0.00-0.20); Basophils % (auto) 0.7 %; Eosinophils # (auto) 0.17 K/uL (0.00-0.50); Eosinophils % (auto) 3.1 %; Hemoglobin 16.6 g/dl (14.0-18.0); Immature Granulocytes # (auto) 0.07 K/uL (0.01-0.20); Immature Granulocytes % (auto) 1.3 %; Lymphocytes # (auto) 1.47 K/uL (1.20-3.40); Lymphocytes % (auto) 27.1 %; Mean Corpuscular Hemoglobin 27.7 pg (25.0-34.0); Mean Corpuscular Hgb Conc 32.5 g/dL (32.0-36.0); Mean Platelet Volume 9.3 fL (9.4-12.4); Monocytes # (auto) 0.67 K/uL (0.11-0.59); Monocytes % (auto) 12.4 %; Neutrophils % (auto) 55.4 %; Platelet Count 235 K/uL (130-400); RDW Coefficient of Variation 15.9 % (11.5-14.5); RDW Standard Deviation 47.9 fL (36.4-46.3); White Blood Count 5.42 K/ul (4.8-10.8)
[2024-01-25 07:05] LABS: BUN Creatinine Ratio 22.6 (10-20); Blood Urea Nitrogen 24 mg/dl (6-23); Calcium 9.5 mg/dl (8.6-10.3); Carbon Dioxide 26 mmol/L (21-32); Chloride 102 mmol/L (98-107); Creatinine Clr Calc Pharmacy 94.4 ml/min; Est GFR (African American) 86.8 ml/min; Est GFR (Non-African American) 74.8 ml/min; Glucose 114 mg/dl (70-99(Fasting))
[2024-01-25 08:08] LABS: Potassium 4.2 mmol/L (3.5-5.1)
--- NOTE | 2024-01-25 12:06 | Hospitalist Progress Note ---
Date of Service January 25, 2024 Assessment & Plan (1) Complicated UTI (urinary tract infection): Plan: Apparently he had Pseudomonas recently isolated on a culture. He is currently on cefepime. He has given consent for PICC line placement for continued IV antibiotic therapy post discharge. Infectious disease consultation requested (2) Hematuria: Plan: Eliquis has been discontinued. Urology consultation and recommendations noted. Outpatient evaluation recommended. Eliquis has been discontinued and hematuria has resolved. CT with contrast completed on admission reveals bilateral renal cysts (3) History of back surgery: Plan: Stable. No intervention necessary at this time (4) History of cardiac cath: Plan: Nonobstructive coronary artery disease. Stable. Continue current medical management (5) HTN (hypertension): Plan: Amlodipine was started on admission. He also remains on lisinopril and sotalol. Will follow. (6) Hx of renal cell cancer: Plan: S/p partial nephrectomy without recurrence. No intervention necessary at this time (7) Paroxysmal A-fib: Plan: Currently in normal sinus rhythm. Eliquis has been discontinued due to hematuria (8) ODILON (acute kidney injury): Plan: Mild on admission. Monitor intake and output. Serial labs Plan Hopeful discharge to home tomorrow, January 25, on IV antibiotic. Recommendations pending per ID Admission and Anticipated Discharge Date Admission Date: January 23, 2024 Subjective Alert and oriented. It appears he will need parenteral antibiotics to treat the suspected Pseudomonas UTI. He is intolerant of fluoroquinolones. Infectious disease consultation has been requested. PICC line consent has been obtained. Urology consultation noted. Outpatient workup recommended. Eliquis has been discontinued temporarily Review of Systems 2 Review of Systems: Constitutional-no fever or chills ENT-no blurred vision, no double vision, no epistaxis, no sore throat Respiratory-no cough, no wheezing, no shortness of breath Cardiac-no palpitations, no chest pain, no syncope GI-no nausea, vomiting, diarrhea, melena, hematochezia -no urinary retention, no urinary incontinence Musculoskeletal-no joint pain, no muscle tenderness Skin-no bruising, no rashes, no pruritus Neuro-no isolated weakness, no paresthesia, no weakness Psych-no depression, no anxiety Physical Exam 2 Physical Exam: General-alert and oriented x3, no fever, no chills HEENT-head atraumatic and normocephalic, pupils equal and reactive to light, extraocular muscles intact Neck-no lymphadenopathy or thyromegaly, trachea midline Chest-clear to auscultation. No rales, wheezing or rhonchi Cardiac-regular rate and rhythm, normal S1 and S2 Abdomen-normal bowel sounds, no hepatosplenomegaly Extremities-no cyanosis, clubbing, or edema Neuro-cranial nerves II through XII intact, motor and sensory function within normal limits, strength symmetrical, no focal deficits Psych-normal affect, normal mood Results & Data Results & Data Vital Signs (Past 12 Hours) Vital Signs Temp Pulse Pulse Resp BP Pulse Ox O2 Del Method 01/25/24 11:01 36.7 C 60 15 137/72 92 Room Air 01/25/24 09:03 Room Air 01/25/24 07:29 36.6 C 57 L 15 126/67 97 Room Air 01/25/24 07:00 60 01/25/24 03:00 36.7 C 60 16 152/66 H 97 Room Air Laboratory Results 01/25/24 06:00 01/25/24 07:30 PG Care Time/CCT Total # of Minutes Spent Total Time Spent with Patient: Total time spent is greater than 50% in coordination of care (as documented) at patient's floor/unit and/or counseling patient: Coding Level of Care Code 65756 SUB INP/OBS CARE 3/50MIN Diagnoses Complicated UTI (urinary tract infection) N39.0 Hematuria R31.9 History of back surgery Z98.890 History of cardiac cath Z98.890 HTN (hypertension) I10 Hx of renal cell cancer Z85.528 Paroxysmal A-fib I48.0 ODILON (acute kidney injury) N17.9
--- NOTE | 2024-01-25 15:02 | Infectious Disease Consult ---
Date of Consultation January 25, 2024 Assessment & Plan (1) Acute UTI: Plan #UTI? #hematuria 63-year-old male with h/o ambulatory dysfunction, right eye blindness, COPD, LUCAS, renal cell carcinoma, [id number] type 2 diabetes, hypertension, hyperlipidemia, nonobstructive coronary artery disease, nonischemic cardiomyopathy, paroxysmal atrial fibrillation/flutter, b/l hip replacements admitted with gross hematuria. ID c/s for pseudomonal UTI. He was seen by Urology, VSS, WBC normal. CT A/P no stones/hydronephrosis Several hyperdense bilateral renal lesions, as described above. These could reflect solid enhancing renal lesions or proteinaceous cysts. Apparently Ucx from OSH grew Pseudomonas and he was given Cipro but didnt tolerate. 01/22 Ucx here grew three times of organisms - all low count Discussion I cannot find scanned urine culture with sensi here -I also searched in 2 different EMRs to find it. It is difficult for me to make total recommendation for ABX especially IV w/o data Will attempt to touch base with primary team Can c/w Cefepime for now- if true Pseudomonal UTI and Sensitive to Cefepime then would plan for 7 days of treatment (imaging neg for stone) Danielle Ragsdale MD Infectious Diseases Consultation Information This patient recommendation is based on a telemedicine consult request which was completed asynchronously through chart review and information provided by the primary physician. The patient was not seen or examined today. The evaluation is consultative in nature and all patient care and treatment decisions can either be accepted or rejected by the patient's primary hospital-based treating physician using their own independent medical judgment for their patient. Grease Remover contact information: Please call [facility] [phone]. (Phone Number For Physician Use Only) Time Spent Reviewing Chart: 31+ minutes History of Present Illness Reason for Consultation: Pseudomonas UTI Requesting Physician: Dr. Amaro Attending Physician: Ruy Amaro MD History of Present Illness 63-year-old male with h/o ambulatory dysfunction, right eye blindness, COPD, LUCAS, renal cell carcinoma, [id number] type 2 diabetes, hypertension, hyperlipidemia, nonobstructive coronary artery disease, nonischemic cardiomyopathy, paroxysmal atrial fibrillation/flutter, b/l hip replacements admitted with gross hematuria. ID c/s for pseudomonal UTI. He was seen by Urology, VSS, WBC normal. CT A/P no stones/hydronephrosis Several hyperdense bilateral renal lesions, as described above. These could reflect solid enhancing renal lesions or proteinaceous cysts. Apparently Ucx from OSH grew Pseudomonas and he was given Cipro but didnt tolerate. 01/22 Ucx here grew Three types of organisms present, all low counts probable skin michelle. No further identifications or sensitivities to follow. Allergies Allergy/AdvReac Type Severity Reaction Status Date / Time ciprofloxacin [From Cipro] Allergy Unknown Hives Verified 01/23/24 11:45 morphine AdvReac Unknown GI UPSET Verified 01/23/24 11:45 Home Medications Medication Instructions Recorded Confirmed Type amitriptyline 25 mg tablet 25 mg PO HS 01/23/24 01/23/24 History apixaban 5 mg tablet (Eliquis) 5 mg PO BID 01/23/24 01/23/24 History cyclobenzaprine 10 mg tablet 10 mg PO TID 01/23/24 01/23/24 History empagliflozin 25 mg tablet 25 mg PO DAILY 01/23/24 01/23/24 History (Jardiance) gabapentin 800 mg tablet 800 mg PO TID 01/23/24 01/23/24 History metformin 1,000 mg tablet 1,000 mg PO BID 01/23/24 01/23/24 History sildenafil 100 mg tablet 100 mg PO UD 01/23/24 01/23/24 History sotalol 80 mg tablet 80 mg PO BID 01/23/24 01/23/24 History trazodone 100 mg tablet 100 mg PO HS 01/23/24 01/23/24 History Patient History Family History Brother Kidney disease Social History (Updated 01/23/24 @ 16:26 by Jonathan Abreu MD) Smoking Status: Current every day smoker Tobacco Type: Cigarettes Cigarettes Per Day: 5; Second Hand Exposure: Yes (DAILY); Do You Dip or Chew Tobacco: No; Hx Alcohol Use: Yes Hx Substance Use: No Preferred Language: [place] Citizen Communication Ability: Effective Relay Worker Required: No Beliefs That Will Affect Care: None Current Living Situation: Spouse and Family Current Living Situation Comment: lives with , daughter, and grandson Feels Safe at Home: Yes Assistive Devices: Cane and Walker Results & Data Vital Signs (Past 12 Hours) Vital Signs Temp Pulse Pulse Resp BP Pulse Ox O2 Del Method 01/25/24 11:01 36.7 C 60 15 137/72 92 Room Air 01/25/24 09:03 Room Air 01/25/24 07:29 36.6 C 57 L 15 126/67 97 Room Air 01/25/24 07:00 60 Medications Administered Current Inpatient Medications Acetaminophen (Acetaminophen 325 Mg Tab) 650 mg PO Q4H PRN PRN Reason: Pain or Fever Stop: 02/22/24 18:57 Amitriptyline HCl (Amitriptyline Hcl 25 Mg Tab) 25 mg PO HS [facility] Stop: 02/22/24 20:59 Last Admin: 01/24/24 21:50 Dose: 25 mg Amlodipine Besylate (Amlodipine Besylate 5 Mg Tab) 10 mg PO QAM [facility] Stop: 02/23/24 08:59 Last Admin: 01/25/24 08:38 Dose: 10 mg Cyclobenzaprine HCl (Cyclobenzaprine Hcl 10 Mg Tab) 10 mg PO TID [facility] Stop: 02/22/24 20:59 Last Admin: 01/25/24 13:03 Dose: 10 mg Dextrose (Dextrose 50% 50 Ml Syringe) 25 - 50 ml IV UD PRN; Protocol PRN Reason: Hypoglycemia Protocol Stop: 02/22/24 15:17 Gabapentin (Gabapentin 800 Mg Tab) 800 mg PO TID [facility] Stop: 02/22/24 20:59 Last Admin: 01/25/24 13:03 Dose: 800 mg Glucagon (Glucagon For Inj 1 Mg Vial) 1 mg SQ UD PRN; Protocol PRN Reason: Hypoglycemia Protocol Stop: 02/22/24 15:17 Glucose (Glucose 40% Gel 15 Gm Tube) 15 - 30 gm PO UD PRN; Protocol PRN Reason: Hypoglycemia Protocol Stop: 02/22/24 15:17 Glucose (Glucose 10 Tab/Tube) 4 - 8 tab PO UD PRN; Protocol PRN Reason: Hypoglycemia Treatment Stop: 02/22/24 15:17 Hydralazine HCl (Hydralazine Hcl 20 Mg/Ml Vial) 2.5 mg IV Q6H PRN PRN Reason: SBP >180 Stop: 02/22/24 15:14 Cefepime HCl 2,000 mg/ Syringe 20 mls @ 5 mls/min IV Q8H [facility]; Protocol Stop: 02/02/24 22:59 Last Admin: 01/25/24 06:11 Dose: 5 mls/min Insulin Aspart (Insulin Aspart Per Unit Charge) 0 units SC ACHS [facility] Stop: 02/22/24 16:29 Last Admin: 01/25/24 12:47 Dose: 3 units Miscellaneous (Carbohydrates For Hypoglycemia ) 15 - 30 gm PO UD PRN PRN Reason: Hypoglycemia Protocol Stop: 02/22/24 15:17 Sotalol HCl (Sotalol Hcl 80 Mg Tab) 80 mg PO BID [facility] Stop: 02/22/24 20:59 Last Admin: 01/25/24 08:37 Dose: 80 mg Trazodone HCl (Trazodone Hcl 100 Mg Tab) 100 mg PO HS [facility] Stop: 02/22/24 20:59 Last Admin: 01/24/24 21:50 Dose: 100 mg
[2024-01-26 06:48] LABS: Basophils # (auto) 0.03 K/uL (0.00-0.20); Basophils % (auto) 0.4 %; Eosinophils # (auto) 0.16 K/uL (0.00-0.50); Eosinophils % (auto) 2.3 %; Hematocrit (blood only) 48.8 % (42.0-52.0); Immature Granulocytes # (auto) 0.07 K/uL (0.01-0.20); Lymphocytes # (auto) 1.89 K/uL (1.20-3.40); Lymphocytes % (auto) 26.8 %; Mean Corpuscular Hemoglobin 27.5 pg (25.0-34.0); Mean Corpuscular Hgb Conc 32.8 g/dL (32.0-36.0); Mean Platelet Volume 10.3 fL (9.4-12.4); Monocytes # (auto) 0.93 K/uL (0.11-0.59); Monocytes % (auto) 13.2 %; Neutrophils # (auto) 3.97 K/uL (1.40-6.50); Neutrophils % (auto) 56.3 %; Platelet Count 261 K/uL (130-400); RDW Coefficient of Variation 15.4 % (11.5-14.5); RDW Standard Deviation 46.5 fL (36.4-46.3); Red Blood Count 5.81 M/uL (4.70-6.10); White Blood Count 7.05 K/ul (4.8-10.8)
[2024-01-26 07:03] LABS: Calcium 9.5 mg/dl (8.6-10.3); Creatinine Clr Calc Pharmacy 93.6 ml/min; Est GFR (African American) 85.8 ml/min; Potassium 4.4 mmol/L (3.5-5.1)
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
[2024-01-26] MEDS ORDERED: CEFEPIME 2,000 MG in SYRINGE 0 ML IV SCH (18:00)
== END 2024-01-26 14:06 | disposition home health service (06) | DRG 690 ==
LOC: ED 09:23 → INTOOBSV 15:13 → EDINP 15:13 → SUATTDRO 15:13 → 2N 23:39